=== PATIENT | male | born 1965 ===

== ENCOUNTER 2016-10-16 09:39 | Inpatient (IN) | payer MEDICARE, MEDICAID ==
[2016-10-15 15:10] VITALS: BMI 25.0
[2016-10-16] MEDS ORDERED: HEPARIN-NS 5,000 UNITS/500 ML 5,000 UNIT/500 ML BAG IV ONE (09:57)
[2016-10-16] MEDS ORDERED: Lidocaine 1% Inj (20ml) ONE (09:57)
[2016-10-16] MEDS ORDERED: ceFAZolin IV 1 gm in Dextrose 1 GM/50 ML BAG IVPB ONE (09:58)
[2016-10-16] MEDS ORDERED: Bupivacaine 0.5% Inj(30mL) ONE (09:59)
[2016-10-16] MEDS ORDERED: Iodixanol 320 MG/ML 200 ML BOTTLE IV ONE (09:59)
[2016-10-16] MEDS ORDERED: Iohexol 240 (50 ml) ONE (09:59)
[2016-10-16] MEDS ORDERED: Lactated Ringer's 1,000 ML IV ONE (10:41)
[2016-10-16] MEDS ORDERED: Sodium Chloride 0.9% 500 ML IV ONE (12:00)
[2016-10-16] MEDS ORDERED: Midazolam 2 MG/2 ML VIAL ONE (12:07)
[2016-10-16] MEDS ORDERED: Propofol 10 mg/ml Inj (20 ML) ONE ×2 (12:07→12:48)
[2016-10-16] MEDS ORDERED: Oxycodone/Acetaminophen 5/325 mg Tab PO PRN (13:33)
--- NOTE | 2016-10-16 13:36 | PCM.SURG1 ---
<Burton Belcher - Last Filed: 10/16/16 13:34> Surgeon's Initial Post Op Note - Surgeon's Notes Surgeon: Dr. Wu Cement Based Materials Pump Tender: Dr. Belcher PGY-2 Type of Anesthesia: IV Sedation Pre-Operative Diagnosis: L AVF occlusion Operative Findings: see op report Post-Operative Diagnosis: see op report Operation Performed: Attempted Right IJ dialysis catheter placement. Right Femoral vein dialysis catheter placement Specimen/Specimens Removed: none Estimated Blood Loss: EBL {In ML}: 15 Blood Products Given: N/A Drains Used: No Drains Post-Op Condition: Good Date of Surgery/Procedure: 10/16/16 Time of Surgery/Procedure: 13:36 <Arjun Wu - Last Filed: 10/16/16 13:54> Surgeon's Initial Post Op Note - Surgeon's Notes Pre-Operative Diagnosis: Need for emergent hemodialysis access Operative Findings: 1. Right femoral catheter with tip in the IVC which is patent on venogram. Catheter flushed easily and returned dark venous blood from both ports. 2. Apparent occlusion of the right jugular and/or right brachiocephalic vein Post-Operative Diagnosis: Need for emergent hemodialysis access Operation Performed: 1. Failed US-guided attempt to place right internal jugular vein dialysis catheter secondary to apparent right brachiocephalic vein occlusion. 2. US-guided placement of right femoral vein dual lumen dialysis catheter. 3. IVC venogram
--- NOTE | 2016-10-16 13:59 | RAD ---
HISTORY: r/o pneumothorax COMPARISON: Comparison is made to 12/11/2013 FINDINGS: LUNGS: There are small opacities at the lung bases may represent atelectasis. PLEURA: No significant pleural effusion identified, no pneumothorax apparent. CARDIOVASCULAR: Normal. OSSEOUS STRUCTURES: No significant abnormalities. VISUALIZED UPPER ABDOMEN: Normal. OTHER FINDINGS: Left-sided hemodialysis catheter seen in place. There is vascular stent at the right axillary region. IMPRESSION: Small opacities at the lung bases likely atelectasis.
[2016-10-16 14:52] LABS: BASO # 0.1 K/uL (0.0-0.2); BASO % 0.9 % (0.0-2.0); EOS # 0.2 K/uL (0.0-0.7); EOS % 3.1 % (0.0-4.0); HEMATOCRIT 36.3 % (35.0-51.0); LYMPH # 0.9 K/uL (1.0-4.3); MEAN CELL VOLUME 81.3 fL (80.0-94.0); MEAN CORPUSCULAR HEMOGLOBIN 26.1 pg (27.0-31.0); MEAN CORPUSCULAR HGB CONC 32.2 g/dL (33.0-37.0); MEAN PLATELET VOLUME 7.3 fL (7.2-11.7); MONO # 0.7 K/uL (0.0-0.8); MONO % 8.9 % (0.0-10.0); RED CELL DISTRIBUTION WIDTH 16.5 % (11.5-14.5); WHITE BLOOD COUNT 7.8 K/uL (4.8-10.8)
[2016-10-16 14:59] LABS: POTASSIUM 5.2 mmol/L (3.6-5.2)
[2016-10-16 15:03] LABS: CALCIUM 9.4 mg/dl (8.6-10.4)
[2016-10-16] MEDS ORDERED: Atropine-Diphenoxylate 0.025-2.5 mg Tab PO PRN (22:08)
[2016-10-16] MEDS: HYDROmorphone 1 mg/ml ISec IVP PRN (22:36)
[2016-10-17] MEDS: HYDROmorphone 1 mg/ml ISec IVP PRN ×5 (05:00→22:08)
[2016-10-17] MEDS: (Novolog) Insulin Aspart, Recombinant 100 u/ml 10 ml vial SC SCH ×4 (08:05→21:40)
[2016-10-17] MEDS ORDERED: Oxycodone/Acetaminophen 5/325 mg Tab PO PRN (08:24)
--- NOTE | 2016-10-17 08:42 | CP.PCM.CON ---
History of Present Illness - History of Present Illness History of Present Illness: REASONS FOR CONSULT : ESRD .. IN NEED FOR EMERGENT HD CLOTTED HD ACCESS PT WAS SEEN ON HD AT THE HD CENTER WITH CLOTTED HERO GRAFT ,, WAS SENT TUESDAY TO THE ACCESS CENTER AND THE GRAFT WAS DE CLOTTED .. BUT ON TUE THE GRAFT WAS FOUND AGAIN RE CLOTTED .. PT WAS ADVICED TO GO TO THE HOSPITAL.. PT WITH MULTIPLE MEDICAL PROBLEMS AND FREQUENT ADDMISSIONS CASE D/W VASCULR SURGERY .. S/P R FEMORAL CATH INSERTION PT RECIEVED HIS HD YESTERDAY SAT Past Patient History - Infectious Disease Hx of Infectious Diseases: None - Tetanus Immunizations Tetanus Immunization: Unknown - Past Medical History & Family History Past Medical History?: Yes - Past Social History Smoking Status: Never Smoked - CARDIAC Hx Cardiac Disorders: Yes Hx Atrial Fibrillation: Yes Hx Cardia Arrhythmia: Yes Hx Congestive Heart Failure: No Hx Hypercholesterolemia: Yes Hx Hypertension: Yes Hx Peripheral Edema: Yes - PULMONARY Hx Respiratory Disorders: Yes Hx Sleep Apnea: Yes - NEUROLOGICAL Hx Neurological Disorder: Yes Other/Comment: Hx Diabetic neuropathy - HEENT Hx HEENT Problems: Yes Hx Cataracts: Yes (Bilateral) Hx Epistaxis: Yes - RENAL Hx Chronic Kidney Disease: Yes (stage 5) Hx Dialysis: Yes Hx Kidney Stones: No Hx Neurogenic Bladder: No Hx Pyelonephritis: No Hx Renal (Kidney) Cancer: No Hx Renal Failure: Yes - ENDOCRINE/METABOLIC Hx Endocrine Disorders: Yes Hx Diabetes Mellitus Type 2: Yes Hx Hypothyroidism: No - HEMATOLOGICAL/ONCOLOGICAL Hx Blood Disorders: Yes Hx AIDS: No Hx Anemia: Yes Hx Human Immunodeficiency Virus (HIV): No - INTEGUMENTARY Hx Dermatological Problems: Yes Hx Cellulitis: Yes Other/Comment: Pt. had all toenails 10 toenails removed at the age of 14 due to pain - MUSCULOSKELETAL/RHEUMATOLOGICAL Hx Musculoskeletal Disorders: Yes Hx Arthritis: Yes Hx Falls: No Hx Fractures: No Hx Osteoporosis: Yes - GASTROINTESTINAL Hx Gastrointestinal Disorders: Yes Hx Gastritis: Yes - GENITOURINARY/GYNECOLOGICAL Hx Genitourinary Disorders: Yes Hx Prostate Problems: Yes Hx Urinary Tract Infection: Yes Other/Comment: Anuric due to kidney condition, confirmed by mother patient has no kidneys - PSYCHIATRIC Hx Psychophysiologic Disorder: Yes Hx Anxiety: Yes Hx Depression: Yes Hx Substance Use: No - SURGICAL HISTORY Hx Surgeries: Yes Hx Appendectomy: Yes Hx Vascular Surgery: Yes Hx Vascular Access Device: Yes Other/Comment: rt old avg. left old avg. rt femoral avg - ANESTHESIA Hx Anesthesia: Yes Hx Anesthesia Reactions: Yes (AWAKE DURING THE SURGERY) Hx Malignant Hyperthermia: No Meds Allergies/Adverse Reactions: Allergies Allergy/AdvReac Type Severity Reaction Status Date / Time ketorolac [From Toradol] Allergy RASH Verified 10/15/16 15:13 propoxyphene napsylate Allergy RASH Verified 10/15/16 15:13 [From Darvocet-N] vancomycin AdvReac RASH Verified 10/15/16 15:13 - Medications Medications: Current Medications Apixaban (Eliquis) 2.5 mg PO BID [facility] Last Admin: 10/16/16 22:43 Dose: 2.5 mg Clopidogrel Bisulfate (Plavix) 75 mg PO DAILY [facility] Diphenoxylate HCl/Atropine (Lomotil 0.025-2.5 Mg Tablet) 2 tab PO BID PRN PRN Reason: Diarrhea Home Med (Amino Ac/Protein Hydr/Whey Pro [Liquacel Liquid Protein Packet]) 30 ml PO DAILY [facility] Home Med (Esomeprazole Magnesium [Nexium]) 40 mg PO DAILY [facility] Home Med (Febuxostat [Uloric]) 40 mg PO DAILY [facility] Hydromorphone HCl (Dilaudid) 1 mg IVP Q4H PRN PRN Reason: Pain, moderate (4-7) Last Admin: 10/17/16 05:00 Dose: 1 mg Insulin Aspart (Novolog) 0 unit SC ACHS [facility] PRN Reason: Protocol Last Admin: 10/17/16 08:05 Dose: Not Given Lactic Acid (Lac-Hydrin 12% Lotion (225 G)) 0 gm TOP BID [facility] Megestrol Acetate (Megace) 200 mg PO BID [facility] Minoxidil (Minoxidil) 2.5 mg PO BID [facility] Last Admin: 10/16/16 23:15 Dose: 2.5 mg [id number] Ethyl Esters (Lovaza) 1 gm PO BID [facility] Oxycodone/Acetaminophen (Percocet 5/325 Mg Tab) 1 tab PO Q6H PRN PRN Reason: Pain, moderate (4-7) Stop: 10/20/16 08:25 Paroxetine HCl (Paxil) 10 mg PO DAILY [facility] Rosuvastatin Calcium (Crestor) 10 mg PO HS [facility] Sevelamer Carbonate (Renvela) 2,400 mg PO TID [facility] Tamsulosin HCl (Flomax) 0.4 mg PO DAILY [facility] Verapamil HCl (Calan Tab) 120 mg PO DAILY [facility] Last Admin: 10/16/16 22:47 Dose: 120 mg Vitamin B Complex/Vit C/Folic Acid (Nephro-Clayton) 1 tab PO DAILY [facility] Results - Vital Signs Recent Vital Signs: Last Vital Signs Temp 98.3 F 10/17/16 00:00 Pulse 89 10/17/16 00:00 Resp 20 10/17/16 00:00 BP 110/73 10/17/16 00:00 Pulse Ox 96 10/17/16 00:00 - Labs Result Diagrams: 10/16/16 14:49 10/16/16 14:49 Labs: Laboratory Results - last 24 hr 10/16/16 10/16/16 10/16/16 13:37 14:49 14:49 WBC 7.8 RBC 4.47 Hgb 11.7 L D Hct 36.3 MCV 81.3 MCH 26.1 L MCHC 32.2 L RDW 16.5 H Plt Count 326 MPV 7.3 Neut % (Auto) 75.1 H Lymph % (Auto) 12.0 L Craig % (Auto) 8.9 Eos % (Auto) 3.1 Baso % (Auto) 0.9 Neut # 5.8 Lymph # 0.9 L Craig # 0.7 Eos # 0.2 Baso # 0.1 Sodium 132 Potassium 5.2 Chloride 89 L Carbon Dioxide 21 L Anion Gap 27 H BUN 84 H Creatinine 18.2 H* D Est GFR ( Amer) 3 Est GFR (Non-Af Amer) 3 POC Glucose (mg/dL) 132 H Random Glucose 109 Calcium 9.4 10/16/16 10/17/16 21:21 08:04 WBC RBC Hgb Hct MCV MCH MCHC RDW Plt Count MPV Neut % (Auto) Lymph % (Auto) Craig % (Auto) Eos % (Auto) Baso % (Auto) Neut # Lymph # Craig # Eos # Baso # Sodium Potassium Chloride Carbon Dioxide Anion Gap BUN Creatinine Est GFR ( Amer) Est GFR (Non-Af Amer) POC Glucose (mg/dL) 255 H 116 H Random Glucose Calcium Assessment & Plan - Assessment and Plan (Free Text) Assessment: ESRD ON HD M W F .. RECIEVED HD SAT AFTER FEMORAL CATH WAS INSERTED S/P FEMORAL CATH FOR DECLOTTING ON TUE MULTIPLE CO MORBIDITIES P : C/O CURRENT CARE FOR DE CLOTTING BY VASCULAR SURGEON ON TUE WILL F/U CLOSELY - Date & Time Date: 10/16/16 Time: 17:00
[2016-10-17] MEDS: Multivitamin Vitamin B Complex (Nephro-Vite) Tab PO SCH (09:13)
[2016-10-17] MEDS: Omega-3-Acid Ethyl Esters 1 GM Cap PO SCH ×2 (09:15→18:06)
[2016-10-17] MEDS: Megestrol Acetate 40 mg/ml Cup PO SCH ×2 (09:15→18:10)
--- NOTE | 2016-10-17 09:32 | CP.PCM.PN ---
<Burton Belcher - Last Filed: 10/17/16 09:28> Subjective - Date & Time of Evaluation Date of Evaluation: 10/17/16 Time of Evaluation: 07:40 - Subjective Subjective: Pt S&E. No acute events over night. Tolerated dialysis yesterday. Right groin region looks good, no hematoma or active bleeding noted. Right neck region appears well. Patient reports mild tenderness in right neck area. Objective - Vital Signs/Intake and Output Vital Signs (last 24 hours): Temp Pulse Resp BP Pulse Ox 98.6 F 86 20 131/76 95 10/17/16 08:00 10/17/16 08:00 10/17/16 08:00 10/17/16 08:00 10/17/16 08:00 Intake and Output: 10/17/16 10/17/16 06:59 18:59 Intake Total 320 Balance 320 - Medications Medications: Current Medications Apixaban (Eliquis) 2.5 mg PO BID [facility] Last Admin: 10/17/16 09:13 Dose: 2.5 mg Clopidogrel Bisulfate (Plavix) 75 mg PO DAILY [facility] Last Admin: 10/17/16 09:15 Dose: 75 mg Diphenoxylate HCl/Atropine (Lomotil 0.025-2.5 Mg Tablet) 2 tab PO BID PRN PRN Reason: Diarrhea Home Med (Amino Ac/Protein Hydr/Whey Pro [Liquacel Liquid Protein Packet]) 30 ml PO DAILY [facility] Home Med (Esomeprazole Magnesium [Nexium]) 40 mg PO DAILY [facility] Home Med (Febuxostat [Uloric]) 40 mg PO DAILY [facility] Hydromorphone HCl (Dilaudid) 1 mg IVP Q4H PRN PRN Reason: Pain, moderate (4-7) Last Admin: 10/17/16 09:00 Dose: 1 mg Insulin Aspart (Novolog) 0 unit SC ACHS [facility] PRN Reason: Protocol Last Admin: 10/17/16 08:05 Dose: Not Given Lactic Acid (Lac-Hydrin 12% Lotion (225 G)) 0 gm TOP BID [facility] Megestrol Acetate (Megace) 200 mg PO BID [facility] Last Admin: 10/17/16 09:15 Dose: 200 mg Minoxidil (Minoxidil) 2.5 mg PO BID [facility] Last Admin: 08/13/17 09:14 Dose: 2.5 mg [id number] Ethyl Esters (Lovaza) 1 gm PO BID [facility] Last Admin: 10/17/16 09:15 Dose: 1 gm Oxycodone/Acetaminophen (Percocet 5/325 Mg Tab) 1 tab PO Q6H PRN PRN Reason: Pain, moderate (4-7) Stop: 10/20/16 08:25 Paroxetine HCl (Paxil) 10 mg PO DAILY [facility] Last Admin: 10/17/16 09:13 Dose: 10 mg Rosuvastatin Calcium (Crestor) 10 mg PO HS [facility] Sevelamer Carbonate (Renvela) 2,400 mg PO TID [facility] Last Admin: 10/17/16 09:14 Dose: 2,400 mg Tamsulosin HCl (Flomax) 0.4 mg PO DAILY [facility] Last Admin: 10/17/16 09:14 Dose: 0.4 mg Verapamil HCl (Calan Tab) 120 mg PO DAILY [facility] Last Admin: 10/16/16 22:47 Dose: 120 mg Vitamin B Complex/Vit C/Folic Acid (Nephro-Clayton) 1 tab PO DAILY [facility] Last Admin: 10/17/16 09:13 Dose: 1 tab - Labs Labs: 10/16/16 14:49 10/16/16 14:49 - Constitutional Appears: No Acute Distress - Head Exam Head Exam: NORMOCEPHALIC - Eye Exam Eye Exam: Normal appearance - ENT Exam ENT Exam: Mucous Membranes Moist - Cardiovascular Exam Cardiovascular Exam: +S1, +S2 - GI/Abdominal Exam GI & Abdominal Exam: Soft Additional comments: Right dialysis groing catheter in place - Neurological Exam Neurological Exam: Alert, Awake, Oriented x3 - Psychiatric Exam Psychiatric exam: Normal Mood - Skin Skin Exam: Dry, Intact, Warm Assessment and Plan - Assessment and Plan (Free Text) Assessment: 51M w/ clotted L AVF s/p right groin dialysis catheter insertion POD1 -Patient scheduled for L AVF declotting tomorrow -R dialysis catheter in place, surgical wound is c/d/i -Medical management per primary -Further recs per Dr. Jazmin Belcher PGY-2 <Arjun Wu - Last Filed: 10/17/16 10:20> Objective - Vital Signs/Intake and Output Vital Signs (last 24 hours): Temp Pulse Resp BP Pulse Ox 98.6 F 86 20 131/76 95 10/17/16 08:00 10/17/16 08:00 10/17/16 08:00 10/17/16 08:00 10/17/16 08:00 Intake and Output: 10/17/16 10/17/16 06:59 18:59 Intake Total 320 Balance 320 - Medications Medications: Current Medications Apixaban (Eliquis) 2.5 mg PO BID [facility] Last Admin: 10/17/16 09:13 Dose: 2.5 mg Clopidogrel Bisulfate (Plavix) 75 mg PO DAILY [facility] Last Admin: 10/17/16 09:15 Dose: 75 mg Diphenoxylate HCl/Atropine (Lomotil 0.025-2.5 Mg Tablet) 2 tab PO BID PRN PRN Reason: Diarrhea Home Med (Amino Ac/Protein Hydr/Whey Pro [Liquacel Liquid Protein Packet]) 30 ml PO DAILY [facility] Home Med (Esomeprazole Magnesium [Nexium]) 40 mg PO DAILY [facility] Home Med (Febuxostat [Uloric]) 40 mg PO DAILY [facility] Hydromorphone HCl (Dilaudid) 1 mg IVP Q4H PRN PRN Reason: Pain, moderate (4-7) Last Admin: 10/17/16 09:00 Dose: 1 mg Insulin Aspart (Novolog) 0 unit SC ACHS [facility] PRN Reason: Protocol Last Admin: 10/17/16 08:05 Dose: Not Given Lactic Acid (Lac-Hydrin 12% Lotion (225 G)) 0 gm TOP BID [facility] Megestrol Acetate (Megace) 200 mg PO BID [facility] Last Admin: 10/17/16 09:15 Dose: 200 mg Minoxidil (Minoxidil) 2.5 mg PO BID [facility] Last Admin: 10/17/16 09:14 Dose: 2.5 mg [id number] Ethyl Esters (Lovaza) 1 gm PO BID [facility] Last Admin: 10/17/16 09:15 Dose: 1 gm Oxycodone/Acetaminophen (Percocet 5/325 Mg Tab) 1 tab PO Q6H PRN PRN Reason: Pain, moderate (4-7) Stop: 10/20/16 08:25 Paroxetine HCl (Paxil) 10 mg PO DAILY [facility] Last Admin: 10/17/16 09:13 Dose: 10 mg Rosuvastatin Calcium (Crestor) 10 mg PO [facility] Sevelamer Carbonate (Renvela) 2,400 mg PO TID [facility] Last Admin: 10/17/16 09:14 Dose: 2,400 mg Tamsulosin HCl (Flomax) 0.4 mg PO DAILY [facility] Last Admin: 10/17/16 09:14 Dose: 0.4 mg Verapamil HCl (Calan Tab) 120 mg PO DAILY [facility] Last Admin: 10/16/16 22:47 Dose: 120 mg Vitamin B Complex/Vit C/Folic Acid (Nephro-Clayton) 1 tab PO DAILY [facility] Last Admin: 10/17/16 09:13 Dose: 1 tab - Labs Labs: 10/16/16 14:49 10/16/16 14:49 Assessment and Plan - Assessment and Plan (Free Text) Plan: Patient seen and examined. Agree with resident physician note. Patient feels much better after dialysis. He has no acute complaints except for some discomfort in the right groin and right side of the neck. There is no bleeding or hematomas. Right femoral dialysis catheter was used for dialysis yesterday and worked well. At this point my plan is to attempt percutaneous declotting of the left arm HeRo graft in the center medical and lab director tomorrow while continuing to use right femoral dialysis catheter for now. Success of failure of HeRo graft declotting will determine further treatment plan. NPO after midnight.
[2016-10-17] MEDS ORDERED: PROTEIN HYDR PO SCH (10:00)
[2016-10-17] MEDS ORDERED: WHEY PRO PO SCH (10:00)
[2016-10-17] MEDS ORDERED: AMINO AC PO SCH (10:00)
[2016-10-17] MEDS: Ammonium Lactate 12% Lotion (225 g) TOP SCH ×2 (13:09→18:11)
--- NOTE | 2016-10-18 01:16 | HP ---
HISTORY OF PRESENT ILLNESS: This is a 51-year-old male with history of multiple medical problems who was admitted for clotted AV shunt, left upper arm AV shunt. The patient was taken to emergently OR in [facility]. The patient was initially admitted to [facility] and was transferred to [facility] where vascular surgery tried to de-clot the shunt unsuccessfully. The patient complained of pain at the site of the shunt. No shortness of breath, no chest pain. OTHER REVIEW OF SYSTEMS: Negative. ALLERGIES: THE PATIENT HAS ALLERGY TO KETOROLAC, VANCOMYCIN, PROPOXYPHENE. SOCIAL HISTORY: No history of smoking, EtOH, or substance abuse. PAST MEDICAL HISTORY: Hypertension, end-stage renal disease on hemodialysis, type 2 diabetes mellitus, and paroxysmal atrial fibrillation, on anticoagulation. Denying prostate hypertrophy. FAMILY HISTORY: Noncontributory. PHYSICAL EXAMINATION: GENERAL: The patient is in bed, not in any cardiopulmonary distress. VITAL SIGNS: Blood pressure 131/76, temperature 98.6, respiratory rate 20, and pulse 86. HEENT: Pupils are equal and reactive to light. Normal-appearing mucosa of the conjunctivae, oropharyngeal, and nasal membrane mucosa. NECK: Supple. No JVD. No carotid bruits. No lymph nodes. No thyromegaly. CHEST AND LUNGS: Bilateral symmetrical expansion. Good air exchange. No rales. No rhonchi. CARDIOVASCULAR: PMI not localized. S1 and S2. No additional sounds. ABDOMEN: Normoactive bowel sounds. No tenderness. No organomegaly. No masses. EXTREMITIES: No cyanosis, no clubbing, no edema. Right metatarsal amputation. CENTRAL NERVOUS SYSTEM: Alert, awake, oriented x2. No neurological deficit could be appreciated. ASSESSMENT: 1. Clotted arteriovenous shunt. 2. End-stage renal disease, on hemodialysis. 3. Type 2 diabetes mellitus. 4. Hypertension. 5. Atrial fibrillation with controlled ventricular rate. PLAN: Follow recommendations of vascular surgery, pain management. Resume patient's home medications. Hemodialysis as per agricultural commodities grader order through the right femoral line. Addie Vale MD
--- NOTE | 2016-10-18 01:38 | OP ---
PROCEDURE DATE: 10/16/2016 PREOPERATIVE DIAGNOSIS: End-stage renal disease with need for emergent hemodialysis access. POSTOPERATIVE DIAGNOSIS: End-stage renal disease with need for emergent hemodialysis access. PROCEDURE: 1. Unsuccessful attempt to place right internal jugular vein hemodialysis catheter. 2. Placement of right femoral dual-lumen dialysis catheter under ultrasound and fluoroscopic guidance. 3. IVC venogram. SURGEON: Arjun Wu MD DEPARTMENTAL BUYER: Burton Belcher DO, PGY-II TYPE OF ANESTHESIA: Conscious sedation. INDICATION FOR SURGERY: The patient is a 51-year-old male with multiple severe comorbidities including end-stage renal disease on dialysis since the age of 12. The patient has had multiple central venous catheters as well as dialysis access placement procedures in the past. He had peritoneal dialysis which failed in the past secondary to peritonitis. Most recently, the patient has been dialyzed through left upper extremity HeRO dialysis graft placed by Dr. Grijalva several months ago. The left arm HeRO graft was working quite well until 5 days prior to the procedure when it was found to be clotted by dialysis nurses. Two days prior to this report, the patient underwent unsuccessful declotting of his left arm HeRO graft at the outside facility. That attempt was not successful and graft once again was found thrombosed by the next day. The patient was referred to emergency room and was admitted to [facility]. Vascular surgical evaluation was requested. On my exam, left upper extremity HeRo graft was thrombosed with no audible bruit. The patient has not been dialyzed for 5 days and was developing hyperkalemia and significant fluid overload. He required emergent hemodialysis access placement and initiation of dialysis. I had extensive discussion with the patient and his family regarding surgical plan, which included most importantly establishing hemodialysis access and dialyzing the patient and then another attempt at declotting of his left HeRo graft. I offered the patient central venous dialysis catheter placement as a temporizing measure. I described risks and benefits of the procedure, which included bleeding, hematoma, damage to the blood vessel or nerves, catheter or systemic infection, need for catheter removal and need for further procedures. With risks and benefits of the procedure clearly explained to the patient, he signed informed consent and chose to proceed with the operation. DESCRIPTION OF PROCEDURE: The patient was brought to the operating room and placed on the table. Conscious sedation anesthesia was applied. I used portable ultrasound to evaluate right jugular vein. Right jugular vein in the mid segment of the neck was patent with multiple venous collaterals visualized. 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 I decided to attempt cannulation of right internal jugular vein to see if I could advance the wire and place temporary dialysis catheter. 1 cc of 1% lidocaine was given subcutaneously and I punctured right internal jugular vein under US guided. Upon return of non- pulsatile dark blood, I advanced the wire under fluoroscopic guidance approximately 3 to 4 cm past the needle tip into the right internal jugular vein. I was not able to advance the wire any further as it apparently encountered chronic occlusion. While trying to get through the occlusion, the wire went into one of the venous collaterals, and while trying to remove it, I lost internal jugular access. I removed the wire without difficulty and applied digital pressure to right side of the neck for several minutes. The field was hemostatic and I used ultrasound guidance to access right internal jugular vein again. I placed a micropuncture kit sheath into the vein over the wire and attempted crossing the occlusion with glide wire. However, I encountered same problem as I could not advance the wire past 4 cm celine going proximally. There were right subclavian vein stents apparent on fluoroscopy, and evidently patient had occlusion of the right brachiocephalic vein at the junction of right internal jugular and subclavian veins. At this point, I decided to abandon the attempt to place right internal jugular dialysis catheter and turned by attention to the right groin. I used portable ultrasound to visualize right femoral vein which was patent and free of thrombus. Right groin was prepped and draped in sterile fashion, and under ultrasound guidance, I cannulated right common femoral vein without difficulty. Upon return of dark non-pulsatile blood, I advanced the wire through the needle into the right common femoral vein and IVC under fluoroscopic guidance. The wire was clearly visualized to the right of the spinal column. I used series of subcutaneous dilators under fluoroscopic guidance to dilate the tract for dialysis catheter placement under fluoroscopy. Next, I used peel-off sheath and advanced this over the wire under fluoroscopic guidance. A 14-Panamanian 28 cm dual-lumen dialysis catheter was placed through the peel-off sheath without difficulty and peel-off sheath was removed. I visualized tip of the catheter in the IVC. There was return of dark venous blood on both ports and both ports were flushed with heparinized saline without any resistance. Next, I used 20 mL of contrast by hand injection to perform IVC venogram. IVC was found to be patent with no evidence of stenosis or thrombosis. At that point, right femoral dialysis catheter was secured to skin and sterile dressing was applied. The patient was transferred to postanesthesia unit in satisfactory condition. There was no evidence of bleeding or hematoma around venipuncture site. Chest x-ray was obtained in PACU and showed no evidence of pneumo- or hemothorax. The patient's irish moss operator Dr. Grier was contacted and arrangement for emergent hemodialysis were made by him. Arjun Wu MD MTDD
[2016-10-18] MEDS: HYDROmorphone 1 mg/ml ISec IVP PRN ×2 (03:33→08:16)
[2016-10-18] MEDS: (Novolog) Insulin Aspart, Recombinant 100 u/ml 10 ml vial SC SCH ×4 (08:32→22:10)
--- NOTE | 2016-10-18 09:43 | CP.PCM.PN ---
<Chinedu Bean - Last Filed: 10/18/16 09:41> Subjective - Date & Time of Evaluation Date of Evaluation: 10/18/16 Time of Evaluation: 08:00 - Subjective Subjective: Vascular Surgery- Dr. Wu Pt S&E at bedside this AM. No acute events overnight. Pt Scheduled to go for dialysis today, followed by angio tomorrow. Right femoral Chirag in place. No erythema, induration, or active bleeding. Denies F/C CP/SOB N/V/D Objective - Vital Signs/Intake and Output Vital Signs (last 24 hours): Temp Pulse Resp BP Pulse Ox 98.7 F 86 20 151/88 H 97 10/18/16 08:00 10/18/16 08:00 10/18/16 08:00 10/18/16 08:00 10/18/16 08:00 Intake and Output: 10/18/16 10/18/16 06:59 18:59 Intake Total 400 0 Balance 400 0 - Medications Medications: Current Medications Apixaban (Eliquis) 2.5 mg PO BID [facility] Last Admin: 10/17/16 21:39 Dose: 2.5 mg Clopidogrel Bisulfate (Plavix) 75 mg PO DAILY [facility] Last Admin: 10/17/16 09:15 Dose: 75 mg Diphenoxylate HCl/Atropine (Lomotil 0.025-2.5 Mg Tablet) 2 tab PO BID PRN PRN Reason: Diarrhea Home Med (Amino Ac/Protein Hydr/Whey Pro [Liquacel Liquid Protein Packet]) 30 ml PO DAILY [facility] Home Med (Esomeprazole Magnesium [Nexium]) 40 mg PO DAILY [facility] Home Med (Febuxostat [Uloric]) 40 mg PO DAILY [facility] Hydromorphone HCl (Dilaudid) 1 mg IVP Q4H PRN PRN Reason: Pain, severe (8-10) Last Admin: 10/18/16 08:16 Dose: 1 mg Insulin Aspart (Novolog) 0 unit SC ACHS [facility] PRN Reason: Protocol Last Admin: 10/18/16 08:32 Dose: Not Given Lactic Acid (Lac-Hydrin 12% Lotion (225 G)) 0 gm TOP BID [facility] Last Admin: 10/17/16 18:11 Dose: 1 applic Megestrol Acetate (Megace) 200 mg PO BID [facility] Last Admin: 10/17/16 18:10 Dose: Not Given Minoxidil (Minoxidil) 2.5 mg PO BID [facility] Last Admin: 10/17/16 18:06 Dose: 2.5 mg Wthis-8-Hjag Ethyl Esters (Lovaza) 1 gm PO BID [facility] Last Admin: 10/17/16 18:06 Dose: 1 gm Oxycodone/Acetaminophen (Percocet 5/325 Mg Tab) 1 tab PO Q6H PRN PRN Reason: Pain, moderate (4-7) Stop: 10/20/16 08:25 Paroxetine HCl (Paxil) 10 mg PO DAILY [facility] Last Admin: 10/17/16 09:13 Dose: 10 mg Rosuvastatin Calcium (Crestor) 10 mg PO HS [facility] Last Admin: 10/17/16 21:38 Dose: 10 mg Sevelamer Carbonate (Renvela) 2,400 mg PO TID [facility] Last Admin: 10/17/16 18:06 Dose: 2,400 mg Tamsulosin HCl (Flomax) 0.4 mg PO DAILY [facility] Last Admin: 10/17/16 09:14 Dose: 0.4 mg Verapamil HCl (Calan Tab) 120 mg PO DAILY [facility] Last Admin: 10/17/16 13:09 Dose: 120 mg Vitamin B Complex/Vit C/Folic Acid (Nephro-Clayton) 1 tab PO DAILY [facility] Last Admin: 10/17/16 09:13 Dose: 1 tab - Labs Labs: 10/16/16 14:49 10/16/16 14:49 - Constitutional Appears: No Acute Distress - Head Exam Head Exam: ATRAUMATIC - Respiratory Exam Respiratory Exam: NORMAL BREATHING PATTERN. absent: Accessory Muscle Use, Rhonchi, Wheezes - Cardiovascular Exam Cardiovascular Exam: +S1, +S2 - GI/Abdominal Exam GI & Abdominal Exam: Soft, Normal Bowel Sounds. absent: Distended, Tenderness - Extremities Exam Additional comments: Right Femoral temporary dialysis catheter in place. - Neurological Exam Neurological Exam: Awake, Oriented x3 - Psychiatric Exam Psychiatric exam: Normal Affect - Skin Skin Exam: Normal Color Assessment and Plan - Assessment and Plan (Free Text) Assessment: 51M w/ clotted L AVF s/p right femoral temporary dialysis catheter insertion POD2 Plan: -Patient scheduled for L AVF declotting tomorrow * Angiography poss angioplasty- declotting of L AVF -R dialysis catheter in place, surgical wound is c/d/i - Dialysis today -Medical management per primary -Further recs per Dr. Jazmin Bean PGY1 <Arjun Wu - Last Filed: 10/18/16 15:39> Objective - Vital Signs/Intake and Output Vital Signs (last 24 hours): Temp Pulse Resp BP Pulse Ox 97.7 F 95 H 19 125/77 100 10/18/16 13:30 10/18/16 13:30 10/18/16 13:30 10/18/16 13:30 10/18/16 13:30 Intake and Output: 10/18/16 10/18/16 06:59 18:59 Intake Total 400 0 Balance 400 0 - Medications Medications: Current Medications Apixaban (Eliquis) 2.5 mg PO BID [facility] Last Admin: 10/18/16 11:01 Dose: Not Given Clopidogrel Bisulfate (Plavix) 75 mg PO DAILY [facility] Last Admin: 10/18/16 11:03 Dose: Not Given Diphenoxylate HCl/Atropine (Lomotil 0.025-2.5 Mg Tablet) 2 tab PO BID PRN PRN Reason: Diarrhea Famotidine (Pepcid) 20 mg PO DAILY [facility] Home Med (Febuxostat [Uloric]) 40 mg PO DAILY [facility] Hydromorphone HCl (Dilaudid) 1.5 mg IVP Q4H PRN PRN Reason: Pain, severe (8-10) Insulin Aspart (Novolog) 0 unit SC ACHS [facility] PRN Reason: Protocol Last Admin: 10/18/16 11:02 Dose: Not Given Lactic Acid (Lac-Hydrin 12% Lotion (225 G)) 0 gm TOP BID [facility] Last Admin: 10/18/16 11:01 Dose: Not Given Megestrol Acetate (Megace) 200 mg PO BID [facility] Last Admin: 10/18/16 11:01 Dose: Not Given Minoxidil (Minoxidil) 2.5 mg PO BID [facility] Last Admin: 10/18/16 11:02 Dose: Not Given Oouzs-9-Khal Ethyl Esters (Lovaza) 1 gm PO BID [facility] Last Admin: 10/18/16 11:01 Dose: Not Given Oxycodone/Acetaminophen (Percocet 5/325 Mg Tab) 1 tab PO Q6H PRN PRN Reason: Pain, moderate (4-7) Stop: 10/20/16 08:25 Paroxetine HCl (Paxil) 10 mg PO DAILY [facility] Last Admin: 10/18/16 11:03 Dose: Not Given Rosuvastatin Calcium (Crestor) 10 mg PO HS [facility] Last Admin: 10/17/16 21:38 Dose: 10 mg Sevelamer Carbonate (Renvela) 2,400 mg PO TID [facility] Last Admin: 10/18/16 14:32 Dose: Not Given Tamsulosin HCl (Flomax) 0.4 mg PO DAILY [facility] Last Admin: 10/18/16 11:01 Dose: Not Given Verapamil HCl (Calan Tab) 120 mg PO DAILY [facility] Last Admin: 10/18/16 11:01 Dose: Not Given Vitamin B Complex/Vit C/Folic Acid (Nephro-Clayton) 1 tab PO DAILY [facility] Last Admin: 10/18/16 11:02 Dose: Not Given - Labs Labs: 10/18/16 11:06 10/18/16 11:06 PT 12.2 SECONDS (9.7-12.2) 10/18/16 11:06 INR 1.1 10/18/16 11:06 APTT 36 SECONDS (21-34) H 10/18/16 11:06 Assessment and Plan - Assessment and Plan (Free Text) Plan: Patient seen and examined. No acute issues at present. Patient remains clinically stable. Right femoral dialysis catheter functioned well at dialysis today. Patient is scheduled for declotting his left upper extremity HeRo catheter tomorrow. Continue supportive management.
[2016-10-18] MEDS: Omega-3-Acid Ethyl Esters 1 GM Cap PO SCH ×2 (11:01→17:49)
[2016-10-18] MEDS: Ammonium Lactate 12% Lotion (225 g) TOP SCH ×2 (11:01→17:57)
[2016-10-18] MEDS: Megestrol Acetate 40 mg/ml Cup PO SCH ×2 (11:01→17:49)
[2016-10-18] MEDS: Multivitamin Vitamin B Complex (Nephro-Vite) Tab PO SCH (11:02)
[2016-10-18 11:22] LABS: INR 1.1
[2016-10-18 11:23] LABS: POTASSIUM 3.2 mmol/L (3.6-5.2)
[2016-10-18 11:25] LABS: BILIRUBIN,TOTAL 0.8 mg/dL (0.2-1.3); TOTAL PROTEIN 7.3 g/dL (6.3-8.3)
[2016-10-18 11:26] LABS: CALCIUM 9.3 mg/dl (8.6-10.4)
[2016-10-18 11:29] LABS: BASO # 0.1 K/uL (0.0-0.2); BASO % 0.8 % (0.0-2.0); EOS # 0.3 K/uL (0.0-0.7); EOS % 3.7 % (0.0-4.0); HEMATOCRIT 37.7 % (35.0-51.0); LYMPH % 13.4 % (20.0-40.0); MEAN CELL VOLUME 80.8 fL (80.0-94.0); MEAN CORPUSCULAR HEMOGLOBIN 26.4 pg (27.0-31.0); MEAN CORPUSCULAR HGB CONC 32.7 g/dL (33.0-37.0); MEAN PLATELET VOLUME 7.3 fL (7.2-11.7); MONO % 12.9 % (0.0-10.0); RED CELL DISTRIBUTION WIDTH 16.8 % (11.5-14.5); WHITE BLOOD COUNT 7.6 K/uL (4.8-10.8)
--- NOTE | 2016-10-18 18:04 | CP.PCM.PN ---
Subjective - Date & Time of Evaluation Date of Evaluation: 10/18/16 Time of Evaluation: 15:00 - Subjective Subjective: SEEN ON RENAL F/U .. C/O LOCAL PAIN ON R LEG AND L SHOULDER RECIEVED HD EARLIAR TODAY VIA R FEMORAL CATH FOR DECLOTTING OF L U E AVG IN AM C/O CURRENT CARE WILL START ON ASA 81 NG POQD AFTER THE DECLOTTING Objective - Vital Signs/Intake and Output Vital Signs (last 24 hours): Temp Pulse Resp BP Pulse Ox 99 F 101 H 20 136/87 96 10/18/16 16:30 10/18/16 16:30 10/18/16 16:30 10/18/16 16:30 10/18/16 16:30 Intake and Output: 10/18/16 10/18/16 06:59 18:59 Intake Total 400 480 Balance 400 480 - Medications Medications: Current Medications Apixaban (Eliquis) 2.5 mg PO BID [facility] Last Admin: 10/18/16 17:52 Dose: 2.5 mg Clopidogrel Bisulfate (Plavix) 75 mg PO DAILY [facility] Last Admin: 10/18/16 11:03 Dose: Not Given Diphenoxylate HCl/Atropine (Lomotil 0.025-2.5 Mg Tablet) 2 tab PO BID PRN PRN Reason: Diarrhea Famotidine (Pepcid) 20 mg PO DAILY [facility] Home Med (Febuxostat [Uloric]) 40 mg PO DAILY [facility] Hydromorphone HCl (Dilaudid) 1.5 mg IVP Q4H PRN PRN Reason: Pain, severe (8-10) Last Admin: 10/18/16 16:00 Dose: 1.5 mg Insulin Aspart (Novolog) 0 unit SC ACHS [facility] PRN Reason: Protocol Last Admin: 10/18/16 17:10 Dose: Not Given Lactic Acid (Lac-Hydrin 12% Lotion (225 G)) 0 gm TOP BID [facility] Last Admin: 10/18/16 17:57 Dose: 1 applic Minoxidil (Minoxidil) 2.5 mg PO BID [facility] Last Admin: 10/18/16 17:52 Dose: 2.5 mg [id number] Ethyl Esters (Lovaza) 1 gm PO BID [facility] Last Admin: 10/18/16 17:49 Dose: 1 gm Oxycodone/Acetaminophen (Percocet 5/325 Mg Tab) 1 tab PO Q6H PRN PRN Reason: Pain, moderate (4-7) Stop: 10/20/16 08:25 Paroxetine HCl (Paxil) 10 mg PO DAILY [facility] Last Admin: 10/18/16 11:03 Dose: Not Given Rosuvastatin Calcium (Crestor) 10 mg PO HS [facility] Last Admin: 10/17/16 21:38 Dose: 10 mg Sevelamer Carbonate (Renvela) 2,400 mg PO TID [facility] Last Admin: 10/18/16 17:50 Dose: 2,400 mg Tamsulosin HCl (Flomax) 0.4 mg PO DAILY [facility] Last Admin: 10/18/16 11:01 Dose: Not Given Verapamil HCl (Calan Tab) 120 mg PO DAILY [facility] Last Admin: 10/18/16 11:01 Dose: Not Given Vitamin B Complex/Vit C/Folic Acid (Nephro-Clayton) 1 tab PO DAILY [facility] Last Admin: 10/18/16 11:02 Dose: Not Given - Labs Labs: 10/18/16 11:06 10/18/16 11:06 PT 12.2 SECONDS (9.7-12.2) 10/18/16 11:06 INR 1.1 10/18/16 11:06 APTT 36 SECONDS (21-34) H 10/18/16 11:06
--- NOTE | 2016-10-18 19:48 | PN ---
DATE: 10/18/2016 SUBJECTIVE: The patient is seen today on 10/18/2016. He is being dialyzed from the femoral catheter. PHYSICAL EXAMINATION VITAL SIGNS: Blood pressure 136/87, temperature 99, respiratory rate 20, and pulse 100. HEENT: Pupils equal and reactive to light. Normal appearing mucosa, conjunctivae, oropharyngeal, and nasal membrane mucosa. NECK: Supple. No JVD. No carotid bruits. No lymph nodes. No thyromegaly. CHEST AND LUNGS: Bilateral symmetrical expansion. Good air exchange. No rales. No rhonchi. CARDIOVASCULAR: PMI not localized. S1 and S2. No additional sounds. ABDOMEN: Normoactive bowel sounds. No tenderness. No organomegaly. No masses. EXTREMITIES: No cyanosis, no clubbing, no edema. Right metatarsal amputation. CENTRAL NERVOUS SYSTEM: Alert, awake, oriented x3. No neurological deficit could be appreciated. ASSESSMENT: 1. Clotted arteriovenous shunt of the left upper arm. 2. End-stage renal disease, on hemodialysis. 3. Hypertension. PLAN: The patient is for shunt repair and currently we will continue hemodialysis through a right femoral catheter. Addie Vale MD
[2016-10-19] MEDS: (Novolog) Insulin Aspart, Recombinant 100 u/ml 10 ml vial SC SCH ×4 (07:50→22:32)
[2016-10-19] MEDS: Ammonium Lactate 12% Lotion (225 g) TOP SCH ×2 (09:59→18:28)
[2016-10-19] MEDS: Omega-3-Acid Ethyl Esters 1 GM Cap PO SCH ×2 (09:59→18:28)
[2016-10-19] MEDS: Multivitamin Vitamin B Complex (Nephro-Vite) Tab PO SCH (09:59)
[2016-10-19] MEDS ORDERED: Propofol 10 mg/ml Inj (20 ML) ONE ×2 (10:02→12:46)
[2016-10-19] MEDS ORDERED: Midazolam 2 MG/2 ML VIAL ONE ×2 (10:03→10:45)
[2016-10-19] MEDS ORDERED: Iodixanol 320 MG/ML 100 ML BOTTLE IV ONE ×2 (10:26→13:30)
[2016-10-19] MEDS ORDERED: ceFAZolin 1 gm FROZEN Premix 1 GM/50 ML ML IVPB ONE (10:30)
[2016-10-19] MEDS ORDERED: ALTEPLASE IV ONE (11:00)
[2016-10-19] MEDS ORDERED: SODIUM CHLORIDE 0.9% IV ONE (11:00)
--- NOTE | 2016-10-19 13:56 | PCM.SURG1 ---
Surgeon's Initial Post Op Note - Surgeon's Notes Surgeon: Arjun Wu MD Director Digital Communications: None Type of Anesthesia: IV Sedation, Moderate Sedation{RN}, Local Pre-Operative Diagnosis: Thrombosis of the left upper arm dialysis HeRo graft Operative Findings: Occluded left HeRo dialysis catheter with significant amount of clot in the proximal graft right off anastomosis. Patent HeRo graft post-procedure with brisk contrast emptying. No apparent residual thrombus or stenosis in the entire body of the graft. Patent brachial anastomosis with no obvious shemodynamically significant stenosis. Post-Operative Diagnosis: Same Operation Performed: 1. Left upper arm HeRo graft declotting using Angiojet thrombectomy device and Gypsy balloon embolectomy vatheter. 2. Post- operative fistulogram Specimen/Specimens Removed: None Estimated Blood Loss: EBL {In ML}: 50 Blood Products Given: N/A Drains Used: No Drains Post-Op Condition: Good Date of Surgery/Procedure: 10/19/16 Time of Surgery/Procedure: 13:56
[2016-10-19] MEDS ORDERED: HYDROmorphone 0.5 mg/0.5 ml ISec IVP PRN (14:03)
[2016-10-19] MEDS ORDERED: HYDROmorphone 1 mg/ml ISec ONE (14:37)
--- NOTE | 2016-10-19 22:22 | CP.PCM.PN ---
Subjective - Date & Time of Evaluation Date of Evaluation: 10/19/16 Time of Evaluation: 13:00 - Subjective Subjective: SEEN ON RENAL F/U S/P DECLOTTING OF L ARM HERO GRAFT ON HD M W F Objective - Vital Signs/Intake and Output Vital Signs (last 24 hours): Temp Pulse Resp BP Pulse Ox 98.3 F 87 20 145/92 H 96 10/19/16 15:00 10/19/16 15:00 10/19/16 15:00 10/19/16 15:00 10/19/16 15:00 Intake and Output: 10/19/16 10/20/16 18:59 06:59 Intake Total 0 Balance 0 - Medications Medications: Current Medications Apixaban (Eliquis) 2.5 mg PO BID [facility] Last Admin: 10/19/16 19:15 Dose: 2.5 mg Aspirin (Ecotrin) 81 mg PO DAILY [facility] Clopidogrel Bisulfate (Plavix) 75 mg PO DAILY [facility] Last Admin: 10/19/16 09:59 Dose: Not Given Diphenoxylate HCl/Atropine (Lomotil 0.025-2.5 Mg Tablet) 2 tab PO BID PRN PRN Reason: Diarrhea Famotidine (Pepcid) 20 mg PO DAILY [facility] Last Admin: 10/19/16 19:12 Dose: 20 mg Home Med (Febuxostat [Uloric]) 40 mg PO DAILY [facility] Last Admin: 10/19/16 09:59 Dose: Not Given Hydromorphone HCl (Dilaudid) 1.5 mg IVP Q4H PRN PRN Reason: Pain, severe (8-10) Last Admin: 10/19/16 19:07 Dose: 1.5 mg Insulin Aspart (Novolog) 0 unit SC ACHS [facility] PRN Reason: Protocol Last Admin: 10/19/16 16:43 Dose: Not Given Lactic Acid (Lac-Hydrin 12% Lotion (225 G)) 0 gm TOP BID [facility] Last Admin: 10/19/16 18:28 Dose: Not Given Minoxidil (Minoxidil) 2.5 mg PO BID [facility] Last Admin: 10/19/16 19:15 Dose: 2.5 mg Wkyxr-7-Lhff Ethyl Esters (Lovaza) 1 gm PO BID [facility] Last Admin: 10/19/16 18:28 Dose: Not Given Oxycodone/Acetaminophen (Percocet 5/325 Mg Tab) 1 tab PO Q6H PRN PRN Reason: Pain, moderate (4-7) Stop: 10/20/16 08:25 Paroxetine HCl (Paxil) 10 mg PO DAILY [facility] Last Admin: 10/19/16 19:14 Dose: 10 mg Rosuvastatin Calcium (Crestor) 10 mg PO HS [facility] Last Admin: 10/18/16 21:38 Dose: 10 mg Sevelamer Carbonate (Renvela) 2,400 mg PO TID [facility] Last Admin: 10/19/16 18:28 Dose: Not Given Tamsulosin HCl (Flomax) 0.4 mg PO DAILY [facility] Last Admin: 10/19/16 09:59 Dose: Not Given Verapamil HCl (Calan Tab) 120 mg PO DAILY [facility] Last Admin: 10/19/16 19:14 Dose: 120 mg Vitamin B Complex/Vit C/Folic Acid (Nephro-Clayton) 1 tab PO DAILY [facility] Last Admin: 10/19/16 09:59 Dose: Not Given - Labs Labs: 10/18/16 11:06 10/18/16 11:06 PT 12.2 SECONDS (9.7-12.2) 10/18/16 11:06 INR 1.1 10/18/16 11:06 APTT 36 SECONDS (21-34) H 10/18/16 11:06 Assessment and Plan - Assessment and Plan (Free Text) Assessment: ESRD ON HD M W F ANEMIA OF CKD . H/H STABLE S/P DECLOTTING C/O CURRENT CARE
--- NOTE | 2016-10-20 04:10 | PN ---
DATE: SUBJECTIVE: The patient has stable , pain lt upper arm on pain medications. . PHYSICAL EXAMINATION VITAL SIGNS: Blood pressure 130/92, temperature 98.8, respiratory rate 20, and pulse of 104. HEENT: Slightly pale mucosa of the conjunctivae. NECK: Supple. No JVD. No carotid bruits. No lymph nodes. No thyromegaly. CHEST AND LUNGS: Bilaterally symmetrical expansion. Good air exchange. CARDIOVASCULAR: PMI not localized. S1 and S2, irregularly irregular. ABDOMEN: Normoactive bowel sounds. No tenderness. No organomegaly. No masses. EXTREMITIES: No cyanosis, no clubbing. CENTRAL NERVOUS SYSTEM: Alert, awake, oriented x2. No neurological deficit could be appreciated.. ASSESSMENT: 1. Malfunctioning left arm arteriovenous shunt. 2. End-stage renal disease, on hemodialysis. 3. Hypertension. PLAN: Continue current management including pain medication and follow vascular surgery recommendation. Mc MD Kavin MTDD
--- NOTE | 2016-10-20 04:12 | OP ---
PROCEDURE DATE: 10/19/2016 SURGEON: Arjun Wu MD BUSINESS CONTINUITY MANAGER: None. PREOPERATIVE DIAGNOSIS: Thrombosed left upper extremity HeRO dialysis graft. POSTOPERATIVE DIAGNOSIS: Thrombosed left upper extremity HeRO dialysis graft. PROCEDURE: 1. Declotting of left upper arm HeRO dialysis graft using AngioJet thrombolytic system and Gypsy balloon thrombectomy. 2. Post procedure fistulogram. TYPE OF ANESTHESIA: IV sedation. INDICATION FOR SURGERY: The patient is a 51-year-old man with multiple severe comorbidities including end-stage renal disease on hemodialysis. The patient was started on dialysis at the 12 years of age and has been dialyzed for many years. He has had multiple dialysis access procedures in the past and exhausted numerous access sites. His renal transplant, peritoneal dialysis and several AV fistulas/grafts in bilateral upper extremities eventually failed. Most recently, the patient has been dialyzed using left upper extremity HeRO dialysis graft placed several months ago by Dr. Grijalva. Six days ago the patient was found to have thrombosis of his HeRO graft. Five days prior to this report, he underwent unsuccessful attempt at declotting left arm HeRO graft at the outside facility. He was admitted to the emergency room at [facility] 4 days prior for evaluation and resolving dialysis access situation. At that time, he had not been dialyzed for at least 5 days. I evaluated the patient shortly after his admission. Clinically, his left upper extremity dialysis graft was thrombosed with no audible bruit or Doppler signal. He showed signs for significant fluid overload and was developing hyperkalemia. Three days ago, I took the patient to the operating room and placed right femoral dialysis catheter which has been used for dialysis ever since. The patient improved clinically with resolution of his hyperkalemia and fluid overload. Given his precarious dialysis access situation, I recommended the patient another attempt at declotting left upper extremity HeRO graft at [facility] catheterization lab. I described the patient details as well as risks and benefits of the procedure. As far as the risks are concerned, I specifically mentioned unsuccessful attempts at declotting HeRO graft especially since another thrombectomy attempt failed in the recent past. I mentioned risk of infection, bleeding, hematoma and need for graft removal. I emphasized the need for further procedures to maintain this graft or to secure new hemodialysis access. I mentioned risk of damage to blood vessels or nerves. I emphasized the risk of embolization and limb ischemia. With the risks and benefits of the procedure described to the patient and his family, he decided to proceed with proposed procedure and signed informed consent. DESCRIPTION OF PROCEDURE: The patient was evaluated by me immediately prior the procedure. Left upper extremity was marked with my initial as the correct surgical site. The patient was brought to the catheterization lab and placed on a table. Left upper extremity was placed on a side table and prepped and draped in a sterile fashion. Patient was given 1 gm of Ancef intravenously. Pre-procedural time-out was completed with confirmation of the patient's identity as well as correct surgical site and proper procedure. I used Micropuncture Kit and attempted cannulating HeRO graft approximately 4 cm proximal to the anastomosis. Since there was no blood flow in the graft it was difficult and I used portable ultrasound at which point graft was cannulated without difficulty in the antegrade direction going centrally toward the heart. Micropuncture sheath was placed and Glidewire was advanced through the arterial portion of the graft through the connector into the venous outflow portion of HeRO graft. Sheath was exchanged for short 7 -Irish over the wire. I injected the contrast through the sheath and the contrast filled the graft, but was not emptying as excepted with graft thrombosis. At this point, I decided to proceed with graft thrombectomy using AngioJet thrombectomy system. AngioJet Solent Omni 120 cm 6-Irish catheter was used over the wire and advanced to the level of the tip of the graft in the right atrium. Next, Pulse spray was used to infuse thrombus within the graft with 20 mg of tPA mixed in 250 mL of saline. After tPA administration, I waited for 20 minutes and then proceeded with AngioJet thrombectomy. Once the thrombectomy was completed, I injected the graft with contrast and it showed patent graft with contrast emptying into the right atrium. Next, I digitally occluded mid portion of the graft and injected contrast forcing it retrograde. I was able to visualize proximal portion of the graft as well as arterial anastomosis and segment of the left brachial artery above and below anastomosis. Anastomosis appeared widely patent with no hemodynamically significant stenosis. Left brachial artery above and below the graft also appeared to be patent with no high grade stenosis. However, there appeared to be filling defect in the most proximal portion of the graft extending from the anastomosis into the graft. I used portable ultrasound to gain retrograde access to the graft using Micropuncture Kit. 7-Irish sheath was placed over wire going retrograde toward anastomosis. I used Glidewire to pass through the graft, through anastomosis into the left brachial artery and into the left radial artery. A 5.5 Irish x 80 cm Gypsy Balloon was used to perform thrombectomy through the anastomosis and proximal portion of the graft. While performing thrombectomy, I applied suction to the sidearm of the retrograde sheath and was able to remove dark semi-liquid clot. After 2 more passes of Gypsy balloon, I once again performed injection through the retrograde sheath and both proximal portion of the graft and anastomosis were patent with no evidence of residual thrombus. Next, I removed retrograde sheath and closed cannulation site with 4-0 Prolene stitch, which was hemostatic. I decided to perform another thrombectomy of the remaining portion of the graft beginning from its tip in the right atrium all the way to the antegrade sheath. Gypsy catheter was advanced over the wire and entire length of the HeRo graft was thrombectomized. Next, I performed hand injection through the antegrade sheath and the graft was patent with no residual thrombus or stenosis. The contrast emptying through the graft was brisk. I removed anterograde sheath and placed 4-0 Prolene to close cannulation site. The field was hemostatic. There was mild hematoma at the anterograde sheath insertion site. I used stethoscope and clearly appreciated bruit in the graft. At this point, procedure was terminated. Dressing was applied to the left upper extremity. Left hand was warm with no sign of ischemia or clinical signs of embolization. The patient was transferred to post-procedural unit in the satisfactory condition. Half an hour since procedure time, I re-examined the patient and once again appreciated audible bruit in the left HeRo graft with stethoscope. Arjun Wu MD JAZZMINE
[2016-10-20] MEDS: (Novolog) Insulin Aspart, Recombinant 100 u/ml 10 ml vial SC SCH ×4 (07:56→23:10)
--- NOTE | 2016-10-20 11:22 | CP.PCM.PN ---
<Martha Travis - Last Filed: 10/20/16 11:28> Subjective - Date & Time of Evaluation Date of Evaluation: 10/20/16 Time of Evaluation: 07:15 - Subjective Subjective: General Surgery Note Patient was seen and examined at bedside in no acute distress. Patient was resting comfortably in bed. Patient denies fever, chills, nausea, vomiting, L arm pain/numbness/tingling, chest pain, palpitation and SOB. Objective - Vital Signs/Intake and Output Vital Signs (last 24 hours): Temp Pulse Resp BP Pulse Ox 98 F 81 20 116/65 99 10/20/16 09:30 10/20/16 09:30 10/20/16 09:30 10/20/16 10:30 10/20/16 09:30 - Medications Medications: Current Medications Apixaban (Eliquis) 2.5 mg PO BID [facility] Last Admin: 10/19/16 19:15 Dose: 2.5 mg Aspirin (Ecotrin) 81 mg PO DAILY [facility] Clopidogrel Bisulfate (Plavix) 75 mg PO DAILY [facility] Last Admin: 10/19/16 09:59 Dose: Not Given Diphenoxylate HCl/Atropine (Lomotil 0.025-2.5 Mg Tablet) 2 tab PO BID PRN PRN Reason: Diarrhea Last Admin: 10/20/16 00:00 Dose: 2 tab Famotidine (Pepcid) 20 mg PO DAILY [facility] Last Admin: 10/19/16 19:12 Dose: 20 mg Home Med (Febuxostat [Uloric]) 40 mg PO DAILY [facility] Last Admin: 10/19/16 09:59 Dose: Not Given Hydromorphone HCl (Dilaudid) 1.5 mg IVP Q4H PRN PRN Reason: Pain, severe (8-10) Last Admin: 10/20/16 07:21 Dose: 1.5 mg Insulin Aspart (Novolog) 0 unit SC ACHS [facility] PRN Reason: Protocol Last Admin: 10/20/16 07:56 Dose: Not Given Lactic Acid (Lac-Hydrin 12% Lotion (225 G)) 0 gm TOP BID [facility] Last Admin: 10/19/16 18:28 Dose: Not Given Minoxidil (Minoxidil) 2.5 mg PO BID [facility] Last Admin: 10/19/16 19:15 Dose: 2.5 mg Khioc-3-Katk Ethyl Esters (Lovaza) 1 gm PO BID [facility] Last Admin: 10/19/16 18:28 Dose: Not Given Paroxetine HCl (Paxil) 10 mg PO DAILY [facility] Last Admin: 10/19/16 19:14 Dose: 10 mg Rosuvastatin Calcium (Crestor) 10 mg PO HS [facility] Last Admin: 10/19/16 22:32 Dose: Not Given Sevelamer Carbonate (Renvela) 2,400 mg PO TIDCC [facility] Tamsulosin HCl (Flomax) 0.4 mg PO DAILY [facility] Last Admin: 10/19/16 09:59 Dose: Not Given Verapamil HCl (Calan Tab) 120 mg PO DAILY [facility] Last Admin: 10/19/16 19:14 Dose: 120 mg Vitamin B Complex/Vit C/Folic Acid (Nephro-Clayton) 1 tab PO DAILY [facility] Last Admin: 10/19/16 09:59 Dose: Not Given - Labs Labs: 10/18/16 11:06 10/18/16 11:06 PT 12.2 SECONDS (9.7-12.2) 10/18/16 11:06 INR 1.1 10/18/16 11:06 APTT 36 SECONDS (21-34) H 10/18/16 11:06 - Constitutional Appears: Well, No Acute Distress - Head Exam Head Exam: ATRAUMATIC, NORMAL INSPECTION - Eye Exam Eye Exam: EOMI, Normal appearance - ENT Exam ENT Exam: Mucous Membranes Moist, Normal Exam - Respiratory Exam Respiratory Exam: Clear to Ausculation Bilateral, NORMAL BREATHING PATTERN - Cardiovascular Exam Cardiovascular Exam: REGULAR RHYTHM, +S1, +S2 - GI/Abdominal Exam GI & Abdominal Exam: Soft, Normal Bowel Sounds - Extremities Exam Extremities Exam: absent: Calf Tenderness, Tenderness Additional comments: Right femoral catheter in place for HD L AVF, Bruit present by auscultation and thrill present with palpation - Neurological Exam Neurological Exam: Alert, Awake, Oriented x3 - Psychiatric Exam Psychiatric exam: Normal Affect, Normal Mood - Skin Skin Exam: Dry, Normal Color, Warm Assessment and Plan - Assessment and Plan (Free Text) Assessment: 51M w/ clotted L AVF s/p declotting using angiojet thromnectomy device and giovanny ballon embolectomy vatheter POD # 1 and s/p right femoral temporary dialysis catheter insertion POD4 Plan: HD M,W, F Right femoral catheter in place; continue to use for HD Continue medical management as per primary Further recs per Dr. Jazmin Travis, PGY-1 <Arjun Wu - Last Filed: 10/20/16 12:45> Objective - Vital Signs/Intake and Output Vital Signs (last 24 hours): Temp Pulse Resp BP Pulse Ox 98 F 81 20 123/76 99 10/20/16 09:30 10/20/16 09:30 10/20/16 09:30 10/20/16 11:30 10/20/16 09:30 - Medications Medications: Current Medications Apixaban (Eliquis) 2.5 mg PO BID [facility] Last Admin: 10/19/16 19:15 Dose: 2.5 mg Aspirin (Ecotrin) 81 mg PO DAILY [facility] Clopidogrel Bisulfate (Plavix) 75 mg PO DAILY [facility] Last Admin: 10/19/16 09:59 Dose: Not Given Diphenoxylate HCl/Atropine (Lomotil 0.025-2.5 Mg Tablet) 2 tab PO BID PRN PRN Reason: Diarrhea Last Admin: 10/20/16 00:00 Dose: 2 tab Famotidine (Pepcid) 20 mg PO DAILY [facility] Last Admin: 10/19/16 19:12 Dose: 20 mg Heparin Sodium (Porcine) (Heparin) 3,500 units IVP MWF [facility] Last Admin: 10/20/16 12:35 Dose: 3,500 units Home Med (Febuxostat [Uloric]) 40 mg PO DAILY [facility] Last Admin: 10/19/16 09:59 Dose: Not Given Hydromorphone HCl (Dilaudid) 1.5 mg IVP Q4H PRN PRN Reason: Pain, severe (8-10) Last Admin: 10/20/16 11:31 Dose: 1.5 mg Insulin Aspart (Novolog) 0 unit SC ACHS [facility] PRN Reason: Protocol Last Admin: 10/20/16 07:56 Dose: Not Given Lactic Acid (Lac-Hydrin 12% Lotion (225 G)) 0 gm TOP BID [facility] Last Admin: 10/19/16 18:28 Dose: Not Given Minoxidil (Minoxidil) 2.5 mg PO BID [facility] Last Admin: 08/15/17 19:15 Dose: 2.5 mg Pcsyv-0-Cocx Ethyl Esters (Lovaza) 1 gm PO BID [facility] Last Admin: 10/19/16 18:28 Dose: Not Given Paroxetine HCl (Paxil) 10 mg PO DAILY [facility] Last Admin: 10/19/16 19:14 Dose: 10 mg Rosuvastatin Calcium (Crestor) 10 mg PO HS [facility] Last Admin: 10/19/16 22:32 Dose: Not Given Sevelamer Carbonate (Renvela) 2,400 mg PO TIDCC [facility] Tamsulosin HCl (Flomax) 0.4 mg PO DAILY [facility] Last Admin: 10/19/16 09:59 Dose: Not Given Verapamil HCl (Calan Tab) 120 mg PO DAILY [facility] Last Admin: 10/19/16 19:14 Dose: 120 mg Vitamin B Complex/Vit C/Folic Acid (Nephro-Clayton) 1 tab PO DAILY [facility] Last Admin: 10/19/16 09:59 Dose: Not Given - Labs Labs: 10/18/16 11:06 10/18/16 11:06 PT 12.2 SECONDS (9.7-12.2) 10/18/16 11:06 INR 1.1 10/18/16 11:06 APTT 36 SECONDS (21-34) H 10/18/16 11:06 Assessment and Plan - Assessment and Plan (Free Text) Plan: Patient seen and examined in the dialysis unit. NO acute events overnight. Patient complains of post-procedural discomfort in the left arm which is helped by current pain medications. Otherwise, left hand is warm, perfused and motor- sensory at the baseline. There is left upper arm swelling. Left upper arm hero graft has audible bruits on auscultation. Continue current management. The plan is to continue using femoral dialysis catheter while attempting one needle cannulation of the hero graft in two days.
[2016-10-20] MEDS: Ammonium Lactate 12% Lotion (225 g) TOP SCH ×2 (12:25→17:58)
[2016-10-20] MEDS: Omega-3-Acid Ethyl Esters 1 GM Cap PO SCH ×2 (14:20→17:56)
[2016-10-20] MEDS: Multivitamin Vitamin B Complex (Nephro-Vite) Tab PO SCH (14:26)
--- NOTE | 2016-10-20 22:59 | PN ---
DATE: 10/20/2016 SUBJECTIVE: The patient was seen today on 10/20/2016. He had a procedure at the left upper arm yesterday and currently he has hemodialysis through the right femoral catheter.. PHYSICAL EXAMINATION VITAL SIGNS: Blood pressure 134/81,temperature 98.6, respiratory rate 20, and pulse is 95. HEENT: Pupils equal and reactive to light. Normal appearing mucosa, conjunctivae, oropharyngeal, and nasal membrane mucosa. NECK: Supple. No JVD. No carotid bruits. No lymph nodes. No thyromegaly. CHEST AND LUNGS: Bilaterally symmetrical expansion. ABDOMEN: Normoactive bowel sounds. No tenderness. No organomegaly. No masses. EXTREMITIES: No cyanosis, no clubbing and no edema. CENTRAL NERVOUS SYSTEM: Alert, awake, oriented x2. No neurological deficit could be appreciated. ASSESSMENT: 1. Clotted left upper arm AV shunt. 2. End-stage renal disease, on hemodialysis. 3. Type 2 diabetes mellitus. 4. Hypertension. PLAN: Continue current medications, pain management and follow vascular surgery consultation. Addie Vale MD [facility]
--- NOTE | 2016-10-20 23:25 | CP.PCM.PN ---
Subjective - Date & Time of Evaluation Date of Evaluation: 10/20/16 Time of Evaluation: 13:00 - Subjective Subjective: SEEN ON RENAL F/U SEEN ON HD SEEN ALONG WITH VASCULAR SURGERY L ARM AVG .. S/P DECLOTTING .. STILL SWOLLEN WITH LOCAL PAIN STILL USING TE FEMORAL CATH FOR HD Objective - Vital Signs/Intake and Output Vital Signs (last 24 hours): Temp Pulse Resp BP Pulse Ox 98 F 95 H 20 134/81 97 10/20/16 13:00 10/20/16 16:06 10/20/16 16:06 10/20/16 16:06 10/20/16 16:06 - Medications Medications: Current Medications Apixaban (Eliquis) 2.5 mg PO BID [facility] Last Admin: 10/20/16 17:56 Dose: 2.5 mg Aspirin (Ecotrin) 81 mg PO DAILY [facility] Last Admin: 10/20/16 14:20 Dose: 81 mg Clopidogrel Bisulfate (Plavix) 75 mg PO DAILY [facility] Last Admin: 10/20/16 14:20 Dose: 75 mg Diphenoxylate HCl/Atropine (Lomotil 0.025-2.5 Mg Tablet) 2 tab PO BID PRN PRN Reason: Diarrhea Last Admin: 10/20/16 00:00 Dose: 2 tab Famotidine (Pepcid) 20 mg PO DAILY [facility] Last Admin: 10/20/16 14:19 Dose: 20 mg Heparin Sodium (Porcine) (Heparin) 3,500 units IVP MWF [facility] Last Admin: 10/20/16 12:35 Dose: 3,500 units Home Med (Febuxostat [Uloric]) 40 mg PO DAILY [facility] Last Admin: 10/20/16 14:21 Dose: 40 mg Hydromorphone HCl (Dilaudid) 1.5 mg IVP Q4H PRN PRN Reason: Pain, severe (8-10) Last Admin: 10/20/16 19:36 Dose: 1.5 mg Insulin Aspart (Novolog) 0 unit SC ACHS [facility] PRN Reason: Protocol Last Admin: 10/20/16 23:10 Dose: Not Given Lactic Acid (Lac-Hydrin 12% Lotion (225 G)) 0 gm TOP BID [facility] Last Admin: 10/20/16 17:58 Dose: 1 applic Minoxidil (Minoxidil) 2.5 mg PO BID [facility] Last Admin: 10/20/16 17:56 Dose: 2.5 mg Qlhdv-9-Niqj Ethyl Esters (Lovaza) 1 gm PO BID [facility] Last Admin: 10/20/16 17:56 Dose: 1 gm Paroxetine HCl (Paxil) 10 mg PO DAILY [facility] Last Admin: 10/20/16 14:26 Dose: 10 mg Rosuvastatin Calcium (Crestor) 10 mg PO HS [facility] Last Admin: 10/20/16 21:11 Dose: 10 mg Sevelamer Carbonate (Renvela) 2,400 mg PO TIDCC [facility] Last Admin: 10/20/16 17:25 Dose: 2,400 mg Tamsulosin HCl (Flomax) 0.4 mg PO DAILY [facility] Last Admin: 10/20/16 14:20 Dose: 0.4 mg Verapamil HCl (Calan Tab) 120 mg PO DAILY [facility] Last Admin: 10/20/16 14:27 Dose: 120 mg Vitamin B Complex/Vit C/Folic Acid (Nephro-Clayton) 1 tab PO DAILY [facility] Last Admin: 10/20/16 14:26 Dose: 1 tab - Labs Labs: 10/18/16 11:06 10/18/16 11:06 PT 12.2 SECONDS (9.7-12.2) 10/18/16 11:06 INR 1.1 10/18/16 11:06 APTT 36 SECONDS (21-34) H 10/18/16 11:06 Assessment and Plan - Assessment and Plan (Free Text) Assessment: ESRD ON HD M W F ANEMIA OF CKD .. ON EPO S/P AVG DECLOTTING .. THE ARM IS SWOLLEN D/W VASCULAR SURGERY
[2016-10-21] MEDS: (Novolog) Insulin Aspart, Recombinant 100 u/ml 10 ml vial SC SCH ×4 (07:47→22:00)
[2016-10-21] MEDS: Omega-3-Acid Ethyl Esters 1 GM Cap PO SCH ×2 (10:18→17:41)
[2016-10-21] MEDS: Multivitamin Vitamin B Complex (Nephro-Vite) Tab PO SCH (10:20)
[2016-10-21] MEDS: Ammonium Lactate 12% Lotion (225 g) TOP SCH ×2 (10:20→17:45)
--- NOTE | 2016-10-21 10:42 | CP.PCM.PN ---
Subjective - Date & Time of Evaluation Date of Evaluation: 10/21/16 Time of Evaluation: 10:00 - Subjective Subjective: Patient complains of soreness in his left upper arm which is helped with pain medications. Otherwise, he has no acute complaints. Objective - Vital Signs/Intake and Output Vital Signs (last 24 hours): Temp Pulse Resp BP Pulse Ox 98.7 F 91 H 20 169/80 H 95 10/21/16 07:48 10/21/16 07:48 10/21/16 07:48 10/21/16 07:48 10/21/16 07:48 Intake and Output: 10/21/16 10/21/16 06:59 18:59 Intake Total 240 Balance 240 - Medications Medications: Current Medications Apixaban (Eliquis) 2.5 mg PO BID [facility] Last Admin: 10/21/16 10:19 Dose: 2.5 mg Aspirin (Ecotrin) 81 mg PO DAILY [facility] Last Admin: 10/21/16 10:19 Dose: 81 mg Clopidogrel Bisulfate (Plavix) 75 mg PO DAILY [facility] Last Admin: 10/21/16 10:19 Dose: 75 mg Diphenoxylate HCl/Atropine (Lomotil 0.025-2.5 Mg Tablet) 2 tab PO BID PRN PRN Reason: Diarrhea Last Admin: 10/20/16 00:00 Dose: 2 tab Famotidine (Pepcid) 20 mg PO DAILY [facility] Last Admin: 10/21/16 10:19 Dose: 20 mg Heparin Sodium (Porcine) (Heparin) 3,500 units IVP MWF [facility] Last Admin: 10/20/16 12:35 Dose: 3,500 units Home Med (Febuxostat [Uloric]) 40 mg PO DAILY [facility] Last Admin: 10/21/16 10:23 Dose: 40 mg Hydromorphone HCl (Dilaudid) 1.5 mg IVP Q4H PRN PRN Reason: Pain, severe (8-10) Last Admin: 10/21/16 07:08 Dose: 1.5 mg Insulin Aspart (Novolog) 0 unit SC ACHS [facility] PRN Reason: Protocol Last Admin: 10/21/16 07:47 Dose: Not Given Lactic Acid (Lac-Hydrin 12% Lotion (225 G)) 0 gm TOP BID [facility] Last Admin: 10/21/16 10:20 Dose: 1 applic Minoxidil (Minoxidil) 2.5 mg PO BID [facility] Last Admin: 10/21/16 10:20 Dose: 2.5 mg Vpmkz-0-Wawb Ethyl Esters (Lovaza) 1 gm PO BID [facility] Last Admin: 10/21/16 10:18 Dose: 1 gm Paroxetine HCl (Paxil) 10 mg PO DAILY [facility] Last Admin: 10/21/16 10:20 Dose: 10 mg Rosuvastatin Calcium (Crestor) 10 mg PO HS [facility] Last Admin: 10/20/16 21:11 Dose: 10 mg Sevelamer Carbonate (Renvela) 2,400 mg PO TIDCC [facility] Last Admin: 10/21/16 07:46 Dose: 2,400 mg Tamsulosin HCl (Flomax) 0.4 mg PO DAILY [facility] Last Admin: 10/21/16 10:19 Dose: 0.4 mg Verapamil HCl (Calan Tab) 120 mg PO DAILY [facility] Last Admin: 10/21/16 10:20 Dose: 120 mg Vitamin B Complex/Vit C/Folic Acid (Nephro-Clayton) 1 tab PO DAILY [facility] Last Admin: 10/21/16 10:20 Dose: 1 tab - Labs Labs: 10/18/16 11:06 10/18/16 11:06 PT 12.2 SECONDS (9.7-12.2) 10/18/16 11:06 INR 1.1 10/18/16 11:06 APTT 36 SECONDS (21-34) H 10/18/16 11:06 - Constitutional Appears: Non-toxic, No Acute Distress - Head Exam Head Exam: ATRAUMATIC, NORMAL INSPECTION, NORMOCEPHALIC - Eye Exam Eye Exam: EOMI, Normal appearance, PERRL Pupil Exam: NORMAL ACCOMODATION - ENT Exam ENT Exam: Normal Exam - Neck Exam Neck Exam: Full ROM - Respiratory Exam Respiratory Exam: NORMAL BREATHING PATTERN - Cardiovascular Exam Cardiovascular Exam: REGULAR RHYTHM, RRR. absent: JVD - GI/Abdominal Exam GI & Abdominal Exam: Soft, Normal Bowel Sounds - Extremities Exam Extremities Exam: Normal Capillary Refill - Neurological Exam Neurological Exam: Alert, Awake, Oriented x3 - Skin Skin Exam: Normal Color, Warm - Additional Findings Additional findings: Left upper extremity shows no signs of ischemia. Left hand is warm and perfused. There is audible bruits in the left upper arm HeRO graft on auscultation. Assessment and Plan - Assessment and Plan (Free Text) Plan: Left upper arm HeRO graft has clearly audible bruits on auscultation. The plan is to attempt one needle cannulation of the graft tomorrow while using femoral dialysis catheter. If HeRO graft is functional will plan to remove femoral catheter. Otherwise will discuss available options for dialysis access.
[2016-10-21] MEDS: Tobramycin 0.3% OPHT SOLN OU SCH ×2 (14:50→17:44)
--- NOTE | 2016-10-21 16:54 | CP.PCM.PN ---
Subjective - Date & Time of Evaluation Date of Evaluation: 10/21/16 Time of Evaluation: 14:00 - Subjective Subjective: SEEN ON RENAL F/U L U EXT PAIN IS LESS FOR HD IN AM .. WILL USE ONE NEEDLE 17 G STILL WITH L FEMORAL CATH Objective - Vital Signs/Intake and Output Vital Signs (last 24 hours): Temp Pulse Resp BP Pulse Ox 98.7 F 91 H 20 169/80 H 95 10/21/16 07:48 10/21/16 07:48 10/21/16 07:48 10/21/16 07:48 10/21/16 07:48 Intake and Output: 10/21/16 10/21/16 06:59 18:59 Intake Total 240 Balance 240 - Medications Medications: Current Medications Apixaban (Eliquis) 2.5 mg PO BID [facility] Last Admin: 10/21/16 10:19 Dose: 2.5 mg Aspirin (Ecotrin) 81 mg PO DAILY [facility] Last Admin: 10/21/16 10:19 Dose: 81 mg Clopidogrel Bisulfate (Plavix) 75 mg PO DAILY [facility] Last Admin: 10/21/16 10:19 Dose: 75 mg Diphenoxylate HCl/Atropine (Lomotil 0.025-2.5 Mg Tablet) 2 tab PO BID PRN PRN Reason: Diarrhea Last Admin: 10/20/16 00:00 Dose: 2 tab Famotidine (Pepcid) 20 mg PO DAILY [facility] Last Admin: 10/21/16 10:19 Dose: 20 mg Heparin Sodium (Porcine) (Heparin) 3,500 units IVP MWF [facility] Last Admin: 10/20/16 12:35 Dose: 3,500 units Heparin Sodium (Porcine) (Heparin) 2,000 units IV ONCE ONE Stop: 10/22/16 15:31 Home Med (Febuxostat [Uloric]) 40 mg PO DAILY [facility] Last Admin: 10/21/16 10:23 Dose: 40 mg Hydromorphone HCl (Dilaudid) 1.5 mg IVP Q4H PRN PRN Reason: Pain, severe (8-10) Last Admin: 10/21/16 15:16 Dose: 1.5 mg Insulin Aspart (Novolog) 0 unit SC ACHS [facility] PRN Reason: Protocol Last Admin: 10/21/16 11:27 Dose: 2 unit Lactic Acid (Lac-Hydrin 12% Lotion (225 G)) 0 gm TOP BID [facility] Last Admin: 10/21/16 10:20 Dose: 1 applic Lidocaine/Prilocaine (Emla) 0 gm EXT MWF [facility] Minoxidil (Minoxidil) 2.5 mg PO BID [facility] Last Admin: 10/21/16 10:20 Dose: 2.5 mg Ltffb-0-Ykrn Ethyl Esters (Lovaza) 1 gm PO BID [facility] Last Admin: 10/21/16 10:18 Dose: 1 gm Paroxetine HCl (Paxil) 10 mg PO DAILY [facility] Last Admin: 10/21/16 10:20 Dose: 10 mg Rosuvastatin Calcium (Crestor) 10 mg PO HS [facility] Last Admin: 10/20/16 21:11 Dose: 10 mg Sevelamer Carbonate (Renvela) 2,400 mg PO TIDCC [facility] Last Admin: 10/21/16 11:29 Dose: 2,400 mg Tamsulosin HCl (Flomax) 0.4 mg PO DAILY [facility] Last Admin: 10/21/16 10:19 Dose: 0.4 mg Tobramycin Sulfate (Tobrex 0.3% [facility]) 1 drop OU TID [facility] Last Admin: 10/21/16 14:50 Dose: Not Given Verapamil HCl (Calan Tab) 120 mg PO DAILY [facility] Last Admin: 10/21/16 10:20 Dose: 120 mg Vitamin B Complex/Vit C/Folic Acid (Nephro-Clayton) 1 tab PO DAILY [facility] Last Admin: 10/21/16 10:20 Dose: 1 tab - Labs Labs: 10/18/16 11:06 10/18/16 11:06 PT 12.2 SECONDS (9.7-12.2) 10/18/16 11:06 INR 1.1 10/18/16 11:06 APTT 36 SECONDS (21-34) H 10/18/16 11:06 Assessment and Plan - Assessment and Plan (Free Text) Assessment: ESRD ON HD M W F ANEMIA OF CKD .. H/H STABLE S/P L U E HERO GRAFT DETHROMBOSIS P : WILL USE ONE NEEDLE IN GRAFT IN AM AND ONE NEEDLE IN R FEMORAL CATH C/O [facility]
--- NOTE | 2016-10-21 21:41 | PN ---
DATE: 10/21/2016 SUBJECTIVE: He complains of constipation. The patient started to have vascular procedure in the morning. PHYSICAL EXAMINATION VITAL SIGNS: Blood pressure 127/72, temperature 98.5, respiratory rate 20, and pulse 87. HEENT: Pupils equal, reactive to light. Normal appearing mucosa of the conjunctivae, oropharyngeal, and nasal membrane mucosa. NECK: Supple. No JVD. No carotid bruit. No lymph node. No thyromegaly. CHEST AND LUNGS: Bilateral symmetrical expansion. Good air exchange. No rales and no rhonchi. CARDIOVASCULAR SYSTEM: PMI not localized. S1 and S2. No additional sounds. ABDOMEN: Normoactive bowel sounds. No tenderness, no organomegaly, no masses. EXTREMITIES: No cyanosis, no clubbing, no edema. CENTRAL NERVOUS SYSTEM: Alert, awake, and oriented x3. No neurological deficit could be appreciated. ASSESSMENT: 1. Clotted left upper arm dialysis access. 2. End-stage renal disease, on hemodialysis. 3. Hypertension. 4. Type 2 diabetes mellitus. PLAN: We will continue current medications and we will give the patient Lactulose 30 mL every 4 hours until bowel movement. Addie Vale MD
[2016-10-22] MEDS: (Novolog) Insulin Aspart, Recombinant 100 u/ml 10 ml vial SC SCH ×4 (07:51→21:55)
[2016-10-22] MEDS: Lidocaine/Prilocaine 2.5%-2.5% Cream (5 gm) EXT SCH (09:08)
[2016-10-22] MEDS: Ammonium Lactate 12% Lotion (225 g) TOP SCH ×2 (10:00→17:48)
[2016-10-22] MEDS: Tobramycin 0.3% OPHT SOLN OU SCH ×3 (10:00→17:50)
[2016-10-22] MEDS: Multivitamin Vitamin B Complex (Nephro-Vite) Tab PO SCH (12:52)
[2016-10-22] MEDS: Omega-3-Acid Ethyl Esters 1 GM Cap PO SCH ×2 (12:52→17:49)
[2016-10-22 16:33] LABS: BASO # 0.1 K/uL (0.0-0.2); BASO % 1.1 % (0.0-2.0); EOS # 0.4 K/uL (0.0-0.7); EOS % 6.1 % (0.0-4.0); HEMATOCRIT 35.4 % (35.0-51.0); LYMPH # 1.1 K/uL (1.0-4.3); MEAN CELL VOLUME 80.9 fL (80.0-94.0); MEAN CORPUSCULAR HEMOGLOBIN 26.2 pg (27.0-31.0); MEAN CORPUSCULAR HGB CONC 32.3 g/dL (33.0-37.0); MEAN PLATELET VOLUME 7.1 fL (7.2-11.7); MONO % 14.4 % (0.0-10.0); RED CELL DISTRIBUTION WIDTH 16.4 % (11.5-14.5); WHITE BLOOD COUNT 6.7 K/uL (4.8-10.8)
[2016-10-22 16:48] LABS: ALB/GLOB RATIO 1.1 (1.0-2.1); BILIRUBIN,TOTAL 0.6 mg/dL (0.2-1.3); CALCIUM 10.4 mg/dl (8.6-10.4); POTASSIUM 3.7 mmol/L (3.6-5.2); TOTAL PROTEIN 6.8 g/dL (6.3-8.3)
--- NOTE | 2016-10-22 19:16 | CP.PCM.PN ---
Subjective - Date & Time of Evaluation Date of Evaluation: 10/22/16 Time of Evaluation: 15:30 - Subjective Subjective: SEEN ON RENAL F/U STILL WITH PAIN ON L UPPER ARM HAD SEVERE OAIN ON AVG . DID NOT USE ONE NEEDLE IN AVG Objective - Vital Signs/Intake and Output Vital Signs (last 24 hours): Temp Pulse Resp BP Pulse Ox 98.5 F 105 H 20 131/73 96 10/22/16 16:00 10/22/16 16:00 10/22/16 16:00 10/22/16 16:00 10/22/16 16:00 Intake and Output: 10/22/16 10/23/16 18:59 06:59 Intake Total 420 Balance 420 - Medications Medications: Current Medications Apixaban (Eliquis) 2.5 mg PO BID [facility] Last Admin: 10/22/16 17:49 Dose: 2.5 mg Aspirin (Ecotrin) 81 mg PO DAILY [facility] Last Admin: 10/22/16 12:51 Dose: 81 mg Clopidogrel Bisulfate (Plavix) 75 mg PO DAILY [facility] Last Admin: 10/22/16 12:53 Dose: 75 mg Diphenoxylate HCl/Atropine (Lomotil 0.025-2.5 Mg Tablet) 2 tab PO BID PRN PRN Reason: Diarrhea Last Admin: 10/20/16 00:00 Dose: 2 tab Famotidine (Pepcid) 20 mg PO DAILY [facility] Last Admin: 10/22/16 12:51 Dose: 20 mg Heparin Sodium (Porcine) (Heparin) 3,500 units IVP MWF [facility] Last Admin: 10/22/16 11:23 Dose: 3,500 units Home Med (Febuxostat [Uloric]) 40 mg PO DAILY [facility] Last Admin: 10/22/16 13:04 Dose: 40 mg Hydromorphone HCl (Dilaudid) 1.5 mg IVP Q4H PRN PRN Reason: Pain, severe (8-10) Last Admin: 10/22/16 17:16 Dose: 1.5 mg Insulin Aspart (Novolog) 0 unit SC ACHS [facility] PRN Reason: Protocol Last Admin: 10/22/16 17:47 Dose: Not Given Lactic Acid (Lac-Hydrin 12% Lotion (225 G)) 0 gm TOP BID [facility] Last Admin: 10/22/16 17:48 Dose: 1 applic Lactulose (Enulose) 20 gm PO Q4 PRN PRN Reason: Constipation Last Admin: 10/21/16 21:57 Dose: 20 gm Lidocaine/Prilocaine (Emla) 0 gm EXT MWF [facility] Last Admin: 10/22/16 09:08 Dose: 1 applic Minoxidil (Minoxidil) 2.5 mg PO BID [facility] Last Admin: 10/22/16 17:49 Dose: 2.5 mg Gapqm-6-Vcdc Ethyl Esters (Lovaza) 1 gm PO BID [facility] Last Admin: 10/22/16 17:49 Dose: 1 gm Paroxetine HCl (Paxil) 10 mg PO DAILY [facility] Last Admin: 10/22/16 12:53 Dose: 10 mg Pneumococcal Polyvalent Vaccine (Pneumovax 23 Vaccine) 0.5 ml IM .ONCE ONE Stop: 10/23/16 10:01 Rosuvastatin Calcium (Crestor) 10 mg PO HS [facility] Last Admin: 10/21/16 21:57 Dose: 10 mg Sevelamer Carbonate (Renvela) 2,400 mg PO TIDCC [facility] Last Admin: 10/22/16 17:50 Dose: 2,400 mg Tamsulosin HCl (Flomax) 0.4 mg PO DAILY [facility] Last Admin: 10/22/16 13:04 Dose: 0.4 mg Tobramycin Sulfate (Tobrex 0.3% [facility]) 1 drop OU TID [facility] Last Admin: 10/22/16 17:50 Dose: 1 drop Verapamil HCl (Calan Tab) 120 mg PO DAILY [facility] Last Admin: 10/22/16 13:06 Dose: 120 mg Vitamin B Complex/Vit C/Folic Acid (Nephro-Clayton) 1 tab PO DAILY [facility] Last Admin: 10/22/16 12:52 Dose: 1 tab - Labs Labs: 10/22/16 16:26 10/22/16 16:26 PT 12.2 SECONDS (9.7-12.2) 10/18/16 11:06 INR 1.1 10/18/16 11:06 APTT 36 SECONDS (21-34) H 10/18/16 11:06 Assessment and Plan - Assessment and Plan (Free Text) Assessment: ESRD ON HD M W F WILL GIVE EXTRA HD IN AM .. WILL ATTEMPT ONE NEEDLE IN AVG C/O CURRENT CARE
--- NOTE | 2016-10-23 00:11 | PN ---
DATE: 10/22/2016 SUBJECTIVE: The patient is seen today. He is status post vascular procedure to declot the left upper arm shunt. The patient was seen during hemodialysis. The patient could not tolerate one needle cannulation of shunt due to pain. The patient was being dialyzed from the femoral catheter. PHYSICAL EXAMINATION VITAL SIGNS: Blood pressure was 131/73, temperature 98.5, respiratory rate 20 and pulse 100. HEENT: Pupils equal, reactive to light. Normal appearing mucosa of the conjunctivae, oropharyngeal, and nasal membrane mucosa. NECK: Supple. No JVD. No carotid bruit. No lymph node. No thyromegaly. CHEST AND LUNGS: Bilateral symmetrical expansion. Good air exchange. No rales and no rhonchi. CARDIOVASCULAR SYSTEM: PMI not localized. S1 and S2. No additional sounds. ABDOMEN: Normoactive bowel sounds. No tenderness. No organomegaly. No masses. EXTREMITIES: No cyanosis. No clubbing. No edema. CENTRAL NERVOUS SYSTEM: Alert, awake, and oriented x2. No neurological deficit could be appreciated. ASSESSMENT: 1. Clotted arteriovenous graft, status post declotting procedure. 2. Right femoral catheter for hemodialysis. 3. Hypertension. 4. Atrial fibrillation. 5. Type 2 diabetes mellitus. 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 Addie Vale MD
[2016-10-23] MEDS: (Novolog) Insulin Aspart, Recombinant 100 u/ml 10 ml vial SC SCH ×4 (07:47→22:10)
[2016-10-23] MEDS: Lidocaine/Prilocaine 2.5%-2.5% Cream (5 gm) EXT SCH (08:48)
[2016-10-23] MEDS: Omega-3-Acid Ethyl Esters 1 GM Cap PO SCH ×2 (09:18→18:36)
[2016-10-23] MEDS: Ammonium Lactate 12% Lotion (225 g) TOP SCH ×2 (09:18→18:40)
[2016-10-23] MEDS: Multivitamin Vitamin B Complex (Nephro-Vite) Tab PO SCH (09:18)
[2016-10-23] MEDS ORDERED: Pneumococcal 23-Valent Vaccine IM ONE ×2 (10:00→13:15)
[2016-10-23] MEDS: Tobramycin 0.3% OPHT SOLN OU SCH ×2 (13:00→18:41)
--- NOTE | 2016-10-23 15:49 | CP.PCM.PN ---
Subjective - Date & Time of Evaluation Date of Evaluation: 10/23/16 Time of Evaluation: 15:47 - Subjective Subjective: on hd today able to cannulate with one needle vss rafael proc cont rx and support. Objective - Vital Signs/Intake and Output Vital Signs (last 24 hours): Temp Pulse Resp BP Pulse Ox 98 F 88 18 143/85 98 10/23/16 10:00 10/23/16 12:00 10/23/16 12:00 10/23/16 12:00 10/23/16 12:00 Intake and Output: 10/23/16 10/23/16 06:59 18:59 Intake Total 300 400 Balance 300 400 - Medications Medications: Current Medications Apixaban (Eliquis) 2.5 mg PO BID [facility] Last Admin: 10/23/16 09:18 Dose: Not Given Aspirin (Ecotrin) 81 mg PO DAILY [facility] Last Admin: 10/23/16 09:17 Dose: Not Given Clopidogrel Bisulfate (Plavix) 75 mg PO DAILY [facility] Last Admin: 10/23/16 09:19 Dose: Not Given Diphenoxylate HCl/Atropine (Lomotil 0.025-2.5 Mg Tablet) 2 tab PO BID PRN PRN Reason: Diarrhea Last Admin: 10/20/16 00:00 Dose: 2 tab Famotidine (Pepcid) 20 mg PO DAILY [facility] Last Admin: 10/23/16 09:19 Dose: Not Given Heparin Sodium (Porcine) (Heparin) 3,500 units IVP MWF [facility] Last Admin: 10/22/16 11:23 Dose: 3,500 units Home Med (Febuxostat [Uloric]) 40 mg PO DAILY [facility] Last Admin: 10/23/16 09:18 Dose: Not Given Hydromorphone HCl (Dilaudid) 1.5 mg IVP Q4H PRN PRN Reason: Pain, severe (8-10) Last Admin: 10/23/16 12:36 Dose: 1.5 mg Insulin Aspart (Novolog) 0 unit SC ACHS [facility] PRN Reason: Protocol Last Admin: 10/23/16 12:31 Dose: Not Given Lactic Acid (Lac-Hydrin 12% Lotion (225 G)) 0 gm TOP BID [facility] Last Admin: 10/23/16 09:18 Dose: Not Given Lactulose (Enulose) 20 gm PO Q4 PRN PRN Reason: Constipation Last Admin: 10/23/16 13:34 Dose: 20 gm Lidocaine/Prilocaine (Emla) 0 gm EXT MWF [facility] Last Admin: 10/23/16 08:48 Dose: 1 applic Minoxidil (Minoxidil) 2.5 mg PO BID [facility] Last Admin: 10/23/16 09:18 Dose: Not Given Loutb-8-Ezhq Ethyl Esters (Lovaza) 1 gm PO BID [facility] Last Admin: 10/23/16 09:18 Dose: Not Given Paroxetine HCl (Paxil) 10 mg PO DAILY [facility] Last Admin: 10/23/16 12:56 Dose: 10 mg Rosuvastatin Calcium (Crestor) 10 mg PO HS [facility] Last Admin: 10/22/16 21:53 Dose: 10 mg Sevelamer Carbonate (Renvela) 2,400 mg PO TIDCC [facility] Last Admin: 10/23/16 12:57 Dose: 2,400 mg Tamsulosin HCl (Flomax) 0.4 mg PO DAILY [facility] Last Admin: 10/23/16 09:18 Dose: Not Given Tobramycin Sulfate (Tobrex 0.3% [facility] Sol[facility]) 1 drop OU TID [facility] Last Admin: 10/23/16 13:00 Dose: 1 drop Verapamil HCl (Calan Tab) 120 mg PO DAILY [facility] Last Admin: 10/23/16 09:17 Dose: Not Given Vitamin B Complex/Vit C/Folic Acid (Nephro-Clayton) 1 tab PO DAILY [facility] Last Admin: 10/23/16 09:18 Dose: Not Given - Labs Labs: 10/22/16 16:26 10/22/16 16:26 PT 12.2 SECONDS (9.7-12.2) 10/18/16 11:06 INR 1.1 10/18/16 11:06 APTT 36 SECONDS (21-34) H 10/18/16 11:06 - Constitutional Appears: Non-toxic - Head Exam Head Exam: NORMAL INSPECTION - Eye Exam Eye Exam: Normal appearance - ENT Exam ENT Exam: Mucous Membranes Moist - Respiratory Exam Respiratory Exam: NORMAL BREATHING PATTERN - Cardiovascular Exam Cardiovascular Exam: REGULAR RHYTHM - GI/Abdominal Exam GI & Abdominal Exam: Soft - Neurological Exam Neurological Exam: Alert, Awake - Psychiatric Exam Psychiatric exam: Normal Affect, Normal Mood - Skin Skin Exam: Dry, Normal Color, Warm
--- NOTE | 2016-10-24 00:29 | PN ---
DAILY PROGRESS NOTE DATE: 10/23/2016 SUBJECTIVE: He is not in any cardiopulmonary distress. PHYSICAL EXAMINATION: VITAL SIGNS: Blood pressure 120/90, temperature 99, respiratory rate 20 and pulse 120. HEENT: Pupils equal, reactive to light. Normal appearing mucosa of the conjunctivae, oropharyngeal and nasal membrane mucosa. NECK: Supple. No JVD. No carotid bruit. No lymph node. No thyromegaly. CHEST AND LUNGS: Bilateral symmetrical expansion. Good air exchange. No rales. No rhonchi. CARDIOVASCULAR SYSTEM: PMI not localized. S1 and S2. No additional sounds. ABDOMEN: Normoactive bowel sounds. No tenderness. No organomegaly. No masses. EXTREMITIES: No cyanosis. No clubbing. No edema. CENTRAL NERVOUS SYSTEM: Alert, awake, and oriented x2. No neurological deficit could be appreciated. ASSESSMENT: Clotted left upper arm shunt, end-stage renal disease on hemodialysis, hypertension, anemia of chronic disease and type 2 diabetes mellitus. PLAN: Continue current management and the patient had already hemodialysis today with one needle cannulation of the left upper arm. The patient will have another attempt of hemodialysis on Tuesday with removal of the right femoral catheter after be able to dialyzed from the left upper arm shunt. Continue current management. Addie Vale MD
[2016-10-24] MEDS: (Novolog) Insulin Aspart, Recombinant 100 u/ml 10 ml vial SC SCH ×4 (07:51→21:49)
[2016-10-24] MEDS: Tobramycin 0.3% OPHT SOLN OU SCH ×4 (10:22→19:10)
[2016-10-24] MEDS: Multivitamin Vitamin B Complex (Nephro-Vite) Tab PO SCH (10:23)
[2016-10-24] MEDS: Omega-3-Acid Ethyl Esters 1 GM Cap PO SCH ×2 (10:24→19:09)
[2016-10-24] MEDS: Ammonium Lactate 12% Lotion (225 g) TOP SCH ×2 (10:27→19:08)
--- NOTE | 2016-10-25 00:39 | CP.PCM.PN ---
Subjective - Date & Time of Evaluation Date of Evaluation: 10/25/16 Time of Evaluation: 00:29 - Subjective Subjective: Patient has no immediate or acute complaints. Objective - Vital Signs/Intake and Output Vital Signs (last 24 hours): Temp Pulse Resp BP Pulse Ox 98.7 F 86 20 133/85 98 10/24/16 15:00 10/24/16 15:00 10/24/16 15:00 10/24/16 15:00 10/24/16 15:00 Intake and Output: 10/24/16 10/25/16 18:59 06:59 Intake Total 320 Balance 320 - Medications Medications: Current Medications Apixaban (Eliquis) 2.5 mg PO BID [facility] Last Admin: 10/24/16 19:08 Dose: 2.5 mg Aspirin (Ecotrin) 81 mg PO DAILY [facility] Last Admin: 10/24/16 10:23 Dose: 81 mg Clopidogrel Bisulfate (Plavix) 75 mg PO DAILY [facility] Last Admin: 10/24/16 10:24 Dose: 75 mg Diphenoxylate HCl/Atropine (Lomotil 0.025-2.5 Mg Tablet) 2 tab PO BID PRN PRN Reason: Diarrhea Last Admin: 10/20/16 00:00 Dose: 2 tab Famotidine (Pepcid) 20 mg PO DAILY [facility] Last Admin: 10/24/16 10:25 Dose: 20 mg Heparin Sodium (Porcine) (Heparin) 3,500 units IVP MWF [facility] Last Admin: 10/22/16 11:23 Dose: 3,500 units Home Med (Febuxostat [Uloric]) 40 mg PO DAILY [facility] Last Admin: 10/24/16 10:26 Dose: 40 mg Hydromorphone HCl (Dilaudid) 1.5 mg IVP Q4H PRN PRN Reason: Pain, severe (8-10) Last Admin: 10/24/16 23:04 Dose: 1.5 mg Insulin Aspart (Novolog) 0 unit SC ACHS [facility] PRN Reason: Protocol Last Admin: 10/24/16 21:49 Dose: Not Given Lactic Acid (Lac-Hydrin 12% Lotion (225 G)) 0 gm TOP BID [facility] Last Admin: 10/24/16 19:08 Dose: 1 applic Lactulose (Enulose) 20 gm PO Q4 PRN PRN Reason: Constipation Last Admin: 10/23/16 13:34 Dose: 20 gm Lidocaine/Prilocaine (Emla) 0 gm EXT MWF [facility] Last Admin: 10/23/16 08:48 Dose: 1 applic Minoxidil (Minoxidil) 2.5 mg PO BID [facility] Last Admin: 10/24/16 19:09 Dose: 2.5 mg Tkeie-4-Exgu Ethyl Esters (Lovaza) 1 gm PO BID [facility] Last Admin: 10/24/16 19:09 Dose: 1 gm Paroxetine HCl (Paxil) 10 mg PO DAILY [facility] Last Admin: 10/24/16 10:23 Dose: 10 mg Rosuvastatin Calcium (Crestor) 10 mg PO HS [facility] Last Admin: 10/24/16 21:31 Dose: 10 mg Sevelamer Carbonate (Renvela) 2,400 mg PO TIDCC [facility] Last Admin: 10/24/16 19:10 Dose: 2,400 mg Tamsulosin HCl (Flomax) 0.4 mg PO DAILY [facility] Last Admin: 10/24/16 10:24 Dose: 0.4 mg Tobramycin Sulfate (Tobrex 0.3% [facility]) 1 drop OU TID [facility] Last Admin: 10/24/16 19:10 Dose: 1 drop Verapamil HCl (Calan Tab) 120 mg PO DAILY [facility] Last Admin: 10/24/16 10:23 Dose: 120 mg Vitamin B Complex/Vit C/Folic Acid (Nephro-Clayton) 1 tab PO DAILY [facility] Last Admin: 10/24/16 10:23 Dose: 1 tab - Labs Labs: 10/22/16 16:26 10/22/16 16:26 PT 12.2 SECONDS (9.7-12.2) 10/18/16 11:06 INR 1.1 10/18/16 11:06 APTT 36 SECONDS (21-34) H 10/18/16 11:06 - Constitutional Appears: Non-toxic, No Acute Distress - Head Exam Head Exam: ATRAUMATIC, NORMOCEPHALIC - Eye Exam Eye Exam: EOMI, Normal appearance, PERRL Pupil Exam: PERRL - ENT Exam ENT Exam: Normal Exam - Neck Exam Neck Exam: Normal Inspection - Respiratory Exam Respiratory Exam: NORMAL BREATHING PATTERN - Cardiovascular Exam Cardiovascular Exam: REGULAR RHYTHM, RRR. absent: JVD - GI/Abdominal Exam GI & Abdominal Exam: Soft. absent: Tenderness - Neurological Exam Neurological Exam: Alert, Awake, Oriented x3 - Psychiatric Exam Psychiatric exam: Normal Affect, Normal Mood - Skin Skin Exam: Normal Color - Additional Findings Additional findings: Left hand is warm and perfused with no signs of ischemia. Left upper arm AV graft has clearly audible bruits. Right groin femoral dialysis catheter is in place - no evidence of hematoma, cellulitis, purulence or erythema. Assessment and Plan - Assessment and Plan (Free Text) Plan: Patient appears to be stable clinically. There are no systemic signs of infection. He was dialyzed one the day prior with one needle HeRO graft cannulation. The plan is to attempt dialysis in the morning using two needle cannulation of the HeRO graft -- if successful, right groin femoral dialysis catheter should be removed provided it is OK by Dr. Grijalva. At this point, patient is under care of Dr. Grijalva who should be contacted to make final decisions regarding dialysis access.
[2016-10-25] MEDS: (Novolog) Insulin Aspart, Recombinant 100 u/ml 10 ml vial SC SCH ×4 (07:30→22:10)
[2016-10-25] MEDS: Lidocaine/Prilocaine 2.5%-2.5% Cream (5 gm) EXT SCH (09:00)
[2016-10-25] MEDS: Tobramycin 0.3% OPHT SOLN OU SCH ×4 (10:04→19:42)
[2016-10-25] MEDS: Omega-3-Acid Ethyl Esters 1 GM Cap PO SCH ×2 (10:05→19:44)
[2016-10-25] MEDS: Multivitamin Vitamin B Complex (Nephro-Vite) Tab PO SCH (10:06)
[2016-10-25] MEDS: Ammonium Lactate 12% Lotion (225 g) TOP SCH ×2 (10:07→19:45)
[2016-10-25] MEDS: HYDROmorphone 1 mg/ml ISec IVP PRN ×2 (15:27→19:39)
[2016-10-25 16:41] VITALS: RESP 20
--- NOTE | 2016-10-25 19:33 | CP.PCM.PN ---
Subjective - Date & Time of Evaluation Date of Evaluation: 10/25/16 Time of Evaluation: 13:00 - Subjective Subjective: SEEN ON RENAL F/U SEEN ON HD .. ONE ARTERIAL NEEDLE WAS USED TOLERATED HD WELL Objective - Vital Signs/Intake and Output Vital Signs (last 24 hours): Temp Pulse Resp BP Pulse Ox 98.7 F 116 H 20 106/74 96 10/25/16 16:00 10/25/16 16:00 10/25/16 16:00 10/25/16 16:00 10/25/16 16:00 Intake and Output: 10/25/16 10/26/16 18:59 06:59 Intake Total 200 Balance 200 - Medications Medications: Current Medications Apixaban (Eliquis) 2.5 mg PO BID [facility] Last Admin: 10/25/16 10:06 Dose: 2.5 mg Aspirin (Ecotrin) 81 mg PO DAILY [facility] Last Admin: 10/25/16 10:06 Dose: 81 mg Clopidogrel Bisulfate (Plavix) 75 mg PO DAILY [facility] Last Admin: 10/25/16 10:06 Dose: 75 mg Diphenoxylate HCl/Atropine (Lomotil 0.025-2.5 Mg Tablet) 2 tab PO BID PRN PRN Reason: Diarrhea Last Admin: 10/20/16 00:00 Dose: 2 tab Famotidine (Pepcid) 20 mg PO DAILY [facility] Last Admin: 10/25/16 10:06 Dose: 20 mg Home Med (Febuxostat [Uloric]) 40 mg PO DAILY [facility] Last Admin: 10/25/16 10:00 Dose: Not Given Hydromorphone HCl (Dilaudid) 1 mg IVP Q4H PRN PRN Reason: Pain, severe (8-10) Last Admin: 10/25/16 15:27 Dose: 1 mg Insulin Aspart (Novolog) 0 unit SC ACHS [facility] PRN Reason: Protocol Last Admin: 10/25/16 16:18 Dose: Not Given Lactic Acid (Lac-Hydrin 12% Lotion (225 G)) 0 gm TOP BID [facility] Last Admin: 10/25/16 10:07 Dose: 1 applic Lactulose (Enulose) 20 gm PO Q4 PRN PRN Reason: Constipation Last Admin: 10/25/16 16:23 Dose: 20 gm Lidocaine/Prilocaine (Emla) 0 gm EXT MWF [facility] Last Admin: 10/25/16 09:00 Dose: 1 applic Minoxidil (Minoxidil) 2.5 mg PO BID [facility] Last Admin: 10/25/16 10:15 Dose: Not Given Buvfh-2-Zkgr Ethyl Esters (Lovaza) 1 gm PO BID [facility] Last Admin: 10/25/16 10:05 Dose: 1 gm Paroxetine HCl (Paxil) 10 mg PO DAILY [facility] Last Admin: 10/25/16 10:06 Dose: 10 mg Rosuvastatin Calcium (Crestor) 10 mg PO HS [facility] Last Admin: 10/24/16 21:31 Dose: 10 mg Sevelamer Carbonate (Renvela) 2,400 mg PO TIDCC [facility] Last Admin: 10/25/16 16:23 Dose: 2,400 mg Tamsulosin HCl (Flomax) 0.4 mg PO DAILY [facility] Last Admin: 10/25/16 10:06 Dose: 0.4 mg Tobramycin Sulfate (Tobrex 0.3% [facility]) 1 drop OU TID [facility] Last Admin: 10/25/16 15:34 Dose: 1 drop Verapamil HCl (Calan Tab) 120 mg PO DAILY [facility] Last Admin: 10/25/16 10:12 Dose: Not Given Vitamin B Complex/Vit C/Folic Acid (Nephro-Clayton) 1 tab PO DAILY [facility] Last Admin: 10/25/16 10:06 Dose: 1 tab - Labs Labs: 10/22/16 16:26 10/22/16 16:26 PT 12.2 SECONDS (9.7-12.2) 10/18/16 11:06 INR 1.1 10/18/16 11:06 APTT 36 SECONDS (21-34) H 10/18/16 11:06 Assessment and Plan - Assessment and Plan (Free Text) Assessment: ESRD ON HD M W F ANEMIA OF CKD .. H/H STABLE S/P DECLOTTING OF HEROGRAFT .. WE USED ONE NEEDLE TODAY C/O CURRENT CARE
[2016-10-26] MEDS: HYDROmorphone 1 mg/ml ISec IVP PRN ×6 (00:07→21:57)
[2016-10-26] MEDS: (Novolog) Insulin Aspart, Recombinant 100 u/ml 10 ml vial SC SCH ×4 (08:03→22:02)
[2016-10-26] MEDS: Omega-3-Acid Ethyl Esters 1 GM Cap PO SCH ×2 (10:04→17:38)
[2016-10-26] MEDS: Multivitamin Vitamin B Complex (Nephro-Vite) Tab PO SCH (10:05)
[2016-10-26] MEDS: Ammonium Lactate 12% Lotion (225 g) TOP SCH ×2 (10:06→17:38)
[2016-10-26] MEDS: Tobramycin 0.3% OPHT SOLN OU SCH ×3 (10:12→17:40)
[2016-10-27] MEDS: HYDROmorphone 1 mg/ml ISec IVP PRN ×5 (02:50→21:37)
[2016-10-27] MEDS: (Novolog) Insulin Aspart, Recombinant 100 u/ml 10 ml vial SC SCH ×4 (08:14→22:00)
[2016-10-27] MEDS: Lidocaine/Prilocaine 2.5%-2.5% Cream (5 gm) EXT SCH (08:17)
[2016-10-27 09:43] LABS: BASO # 0.1 K/uL (0.0-0.2); BASO % 1.5 % (0.0-2.0); EOS # 0.4 K/uL (0.0-0.7); EOS % 6.4 % (0.0-4.0); HEMATOCRIT 34.5 % (35.0-51.0); LYMPH # 1.4 K/uL (1.0-4.3); MEAN CORPUSCULAR HEMOGLOBIN 26.1 pg (27.0-31.0); MEAN CORPUSCULAR HGB CONC 32.2 g/dL (33.0-37.0); MEAN PLATELET VOLUME 7.4 fL (7.2-11.7); MONO # 0.8 K/uL (0.0-0.8); MONO % 12.2 % (0.0-10.0); RED CELL DISTRIBUTION WIDTH 15.8 % (11.5-14.5); WHITE BLOOD COUNT 6.8 K/uL (4.8-10.8)
[2016-10-27 09:56] LABS: POTASSIUM 4.1 mmol/L (3.6-5.2)
[2016-10-27 09:59] LABS: PHOSPHOROUS 5.4 mg/dL (2.5-4.5)
[2016-10-27 10:00] LABS: CALCIUM 11.2 mg/dl (8.6-10.4); MAGNESIUM 1.9 mg/dL (1.6-2.3)
[2016-10-27] MEDS: Tobramycin 0.3% OPHT SOLN OU SCH ×3 (10:00→17:42)
[2016-10-27] MEDS: Ammonium Lactate 12% Lotion (225 g) TOP SCH ×2 (10:48→17:47)
[2016-10-27] MEDS: Omega-3-Acid Ethyl Esters 1 GM Cap PO SCH ×2 (13:26→17:37)
[2016-10-27] MEDS: Multivitamin Vitamin B Complex (Nephro-Vite) Tab PO SCH (13:29)
--- NOTE | 2016-10-27 15:51 | RAD ---
PROCEDURE: HISTORY: Clotted AV F ; for insertion of dialysis catheter COMPARISON: None TECHNIQUE: Total fluoroscopic time utilized during the procedure: 2004.8 seconds. Total dose 16.59 mGy cm squared FINDINGS: Submitted images from the current procedure: 1 Please refer to the physician's notes performing the procedure. IMPRESSION: Less than 1 hour fluoroscopic time utilized during performance of the procedure
--- NOTE | 2016-10-27 17:11 | CP.PCM.PN ---
Subjective - Date & Time of Evaluation Date of Evaluation: 10/27/16 Time of Evaluation: 16:00 - Subjective Subjective: TREE KILLER NOTES PT HAD HD TODAY VIA AV GRAFT TO THE LEFT ARM , WITHOUT ANY PROBLEMS D/W WITH DR. BALES REGARDING DISCHARGE , CLEARED FOR DISCHARGE IF NO ISSUES WITH HD TODAY PENDING CALL BACK FROM DR. CALLES - COVERING FOR DR. KATZ Objective - Vital Signs/Intake and Output Vital Signs (last 24 hours): Temp Pulse Resp BP Pulse Ox 97.8 F 99 H 20 111/70 96 10/27/16 15:00 10/27/16 15:00 10/27/16 15:00 10/27/16 15:00 10/27/16 15:00 Intake and Output: 10/27/16 10/27/16 06:59 18:59 Intake Total 170 240 Balance 170 240 - Medications Medications: Current Medications Apixaban (Eliquis) 2.5 mg PO BID [facility] Last Admin: 10/27/16 13:28 Dose: 2.5 mg Aspirin (Ecotrin) 81 mg PO DAILY [facility] Last Admin: 10/27/16 13:26 Dose: 81 mg Clopidogrel Bisulfate (Plavix) 75 mg PO DAILY [facility] Last Admin: 10/27/16 13:37 Dose: 75 mg Diphenoxylate HCl/Atropine (Lomotil 0.025-2.5 Mg Tablet) 2 tab PO BID PRN PRN Reason: Diarrhea Last Admin: 10/20/16 00:00 Dose: 2 tab Famotidine (Pepcid) 20 mg PO DAILY [facility] Last Admin: 10/27/16 13:37 Dose: 20 mg Home Med (Febuxostat [Uloric]) 40 mg PO DAILY [facility] Last Admin: 10/27/16 13:37 Dose: 40 mg Hydromorphone HCl (Dilaudid) 1 mg IVP Q4H PRN PRN Reason: Pain, severe (8-10) Last Admin: 10/27/16 13:30 Dose: 1 mg Insulin Aspart (Novolog) 0 unit SC ACHS [facility] PRN Reason: Protocol Last Admin: 10/27/16 12:32 Dose: Not Given Lactic Acid (Lac-Hydrin 12% Lotion (225 G)) 0 gm TOP BID [facility] Last Admin: 10/27/16 10:48 Dose: Not Given Lactulose (Enulose) 20 gm PO Q4 PRN PRN Reason: Constipation Last Admin: 10/27/16 13:40 Dose: 20 gm Lidocaine/Prilocaine (Emla) 0 gm EXT MWF [facility] Last Admin: 10/27/16 08:17 Dose: 1 applic Minoxidil (Minoxidil) 2.5 mg PO BID [facility] Last Admin: 10/27/16 10:00 Dose: Not Given Bmngr-1-Cqjr Ethyl Esters (Lovaza) 1 gm PO BID [facility] Last Admin: 10/27/16 13:26 Dose: 1 gm Paroxetine HCl (Paxil) 10 mg PO DAILY [facility] Last Admin: 10/27/16 13:30 Dose: 10 mg Rosuvastatin Calcium (Crestor) 10 mg PO HS [facility] Last Admin: 10/26/16 21:57 Dose: 10 mg Sevelamer Carbonate (Renvela) 2,400 mg PO TIDCC [facility] Last Admin: 10/27/16 13:25 Dose: 2,400 mg Tamsulosin HCl (Flomax) 0.4 mg PO DAILY [facility] Last Admin: 10/27/16 13:26 Dose: 0.4 mg Tobramycin Sulfate [facility] 1 drop OU TID [facility] Last Admin: 10/27/16 13:26 Dose: 1 drop Verapamil HCl (Calan Tab) 120 mg PO DAILY [facility] Last Admin: 10/27/16 13:27 Dose: Not Given Vitamin B Complex/Vit C/Folic Acid (Nephro-Clayton) 1 tab PO DAILY [facility] Last Admin: 10/27/16 13:29 Dose: 1 tab - Labs Labs: 10/27/16 09:37 10/27/16 09:37 PT 12.2 SECONDS (9.7-12.2) 10/18/16 11:06 INR 1.1 10/18/16 11:06 APTT 36 SECONDS (21-34) H 10/18/16 11:06
--- NOTE | 2016-10-27 23:17 | CP.PCM.PN ---
Subjective - Date & Time of Evaluation Date of Evaluation: 10/27/16 Time of Evaluation: 15:00 - Subjective Subjective: SEEN ON RENAL F/U SEEN ON HD .. 2 NEEDLES WEE USED IN THE AVG C/O LOCAL PAIN BUT LESS THAN BEFORE Objective - Vital Signs/Intake and Output Vital Signs (last 24 hours): Temp Pulse Resp BP Pulse Ox 97.8 F 99 H 20 111/70 96 10/27/16 15:00 10/27/16 15:00 10/27/16 15:00 10/27/16 15:00 10/27/16 15:00 Intake and Output: 10/27/16 10/28/16 18:59 06:59 Intake Total 240 240 Balance 240 240 - Medications Medications: Current Medications Apixaban (Eliquis) 2.5 mg PO BID [facility] Last Admin: 10/27/16 17:39 Dose: 2.5 mg Aspirin (Ecotrin) 81 mg PO DAILY [facility] Last Admin: 10/27/16 13:26 Dose: 81 mg Clopidogrel Bisulfate (Plavix) 75 mg PO DAILY [facility] Last Admin: 10/27/16 13:37 Dose: 75 mg Diphenoxylate HCl/Atropine (Lomotil 0.025-2.5 Mg Tablet) 2 tab PO BID PRN PRN Reason: Diarrhea Last Admin: 10/20/16 00:00 Dose: 2 tab Famotidine (Pepcid) 20 mg PO DAILY [facility] Last Admin: 10/27/16 13:37 Dose: 20 mg Home Med (Febuxostat [Uloric]) 40 mg PO DAILY [facility] Last Admin: 10/27/16 13:37 Dose: 40 mg Hydromorphone HCl (Dilaudid) 1 mg IVP Q4H PRN PRN Reason: Pain, severe (8-10) Last Admin: 10/27/16 21:37 Dose: 1 mg Insulin Aspart (Novolog) 0 unit SC ACHS [facility] PRN Reason: Protocol Last Admin: 10/27/16 22:00 Dose: 2 unit Lactic Acid (Lac-Hydrin 12% Lotion (225 G)) 0 gm TOP BID [facility] Last Admin: 10/27/16 17:47 Dose: 1 applic Lactulose (Enulose) 20 gm PO Q4 PRN PRN Reason: Constipation Last Admin: 10/27/16 13:40 Dose: 20 gm Lidocaine/Prilocaine (Emla) 0 gm EXT MWF [facility] Last Admin: 10/27/16 08:17 Dose: 1 applic Minoxidil (Minoxidil) 2.5 mg PO BID [facility] Last Admin: 10/27/16 17:39 Dose: 2.5 mg Xaktq-3-Fjxy Ethyl Esters (Lovaza) 1 gm PO BID [facility] Last Admin: 10/27/16 17:37 Dose: 1 gm Paroxetine HCl (Paxil) 10 mg PO DAILY [facility] Last Admin: 10/27/16 13:30 Dose: 10 mg Rosuvastatin Calcium (Crestor) 10 mg PO HS [facility] Last Admin: 10/27/16 21:37 Dose: 10 mg Sevelamer Carbonate (Renvela) 2,400 mg PO TIDCC [facility] Last Admin: 10/27/16 17:37 Dose: 2,400 mg Tamsulosin HCl (Flomax) 0.4 mg PO DAILY [facility] Last Admin: 10/27/16 13:26 Dose: 0.4 mg Tobramycin Sulfate (Tobrex 0.3% [facility]) 1 drop OU TID [facility] Last Admin: 10/27/16 17:42 Dose: 1 drop Verapamil HCl (Calan Tab) 120 mg PO DAILY [facility] Last Admin: 10/27/16 13:27 Dose: Not Given Vitamin B Complex/Vit C/Folic Acid (Nephro-Clayton) 1 tab PO DAILY [facility] Last Admin: 10/27/16 13:29 Dose: 1 tab - Labs Labs: 10/27/16 09:37 10/27/16 09:37 PT 12.2 SECONDS (9.7-12.2) 10/18/16 11:06 INR 1.1 10/18/16 11:06 APTT 36 SECONDS (21-34) H 10/18/16 11:06 Assessment and Plan - Assessment and Plan (Free Text) Assessment: ESRD ON HD M W F S/P AVG DE CLOTTING .. WAS USED SUCCESFULLY WITH 2 NEEDLES MULTIPLE CO MORBIDITIES P : C/O CURRENT CARE FOR D/C IN AM .. IF OK WITH DR KATZ
[2016-10-28 01:23] VITALS: O2SAT 95
[2016-10-28] MEDS: HYDROmorphone 1 mg/ml ISec IVP PRN ×3 (02:31→13:09)
[2016-10-28 07:36] VITALS: BP 133/78; PULSE 102; TEMP 98
[2016-10-28] MEDS: (Novolog) Insulin Aspart, Recombinant 100 u/ml 10 ml vial SC SCH ×2 (07:55→12:10)
[2016-10-28] MEDS: Omega-3-Acid Ethyl Esters 1 GM Cap PO SCH (09:03)
[2016-10-28] MEDS: Multivitamin Vitamin B Complex (Nephro-Vite) Tab PO SCH (09:04)
[2016-10-28] MEDS: Ammonium Lactate 12% Lotion (225 g) TOP SCH (09:08)
[2016-10-28] MEDS: Tobramycin 0.3% OPHT SOLN OU SCH ×2 (10:06→14:22)
--- NOTE | 2016-10-28 16:43 | CP.PCM.PN ---
Subjective - Date & Time of Evaluation Date of Evaluation: 10/28/16 Time of Evaluation: 11:00 - Subjective Subjective: Awake, alert, no sob or chest pains. Objective - Vital Signs/Intake and Output Vital Signs (last 24 hours): Temp Pulse Resp BP Pulse Ox 98 F 102 H 20 133/78 95 10/28/16 07:29 10/28/16 07:29 10/28/16 07:29 10/28/16 07:29 10/28/16 07:29 Intake and Output: 10/28/16 10/28/16 06:59 18:59 Intake Total 400 Balance 400 - Labs Labs: 10/27/16 09:37 10/27/16 09:37 PT 12.2 SECONDS (9.7-12.2) 10/18/16 11:06 INR 1.1 10/18/16 11:06 APTT 36 SECONDS (21-34) H 10/18/16 11:06 Assessment and Plan - Assessment and Plan (Free Text) Assessment: Patient is seen and examined. Alert and orientedx3, no sob or chest pains. Had HD done yesterday using left arm AVF, working well. D/W DR Grier, plan to discharge home today. Advised to keep right femoral dialysis catheter for now as per DR DR Grier. To follow up in the office in 1 week.
== END 2016-10-28 14:46 | disposition home or self-care (01) | DRG 252 ==
LOC: C.3T 09:39
PROVIDERS: ADMIT Internal Medicine; ATTEND Internal Medicine
PROC: 06HM33Z Insertion of Infusion Device into Right Femoral Vein, Percutaneous Approach (ICD-10-PCS; 2016-10-16)
PROC: B5191ZZ Fluoroscopy of Inferior Vena Cava using Low Osmolar Contrast (ICD-10-PCS; 2016-10-16)
PROC: 5A1D60Z (ICD-10-PCS; 2016-10-16)
PROC: 03CY3ZZ Extirpation of Matter from Upper Artery, Percutaneous Approach (ICD-10-PCS; 2016-10-19)
PROC: 3E05317 Introduction of Other Thrombolytic into Peripheral Artery, Percutaneous Approach (ICD-10-PCS; 2016-10-19)
PROC: 037Y3ZZ Dilation of Upper Artery, Percutaneous Approach (ICD-10-PCS; principal; 2016-10-19 10:00)
DX: T82.868A Thrombosis due to vascular prosthetic devices, implants and grafts, initial encounter (principal); N18.6 End stage renal disease; E87.5 Hyperkalemia; I12.0 Hypertensive chronic kidney disease with stage 5 chronic kidney disease or end stage renal disease; E11.22 Type 2 diabetes mellitus with diabetic chronic kidney disease; D63.1 Anemia in chronic kidney disease; I48.0 Paroxysmal atrial fibrillation; E11.40 Type 2 diabetes mellitus with diabetic neuropathy, unspecified; E78.00 Pure hypercholesterolemia, unspecified; G47.30 Sleep apnea, unspecified; K59.00 Constipation, unspecified; M81.0 Age-related osteoporosis without current pathological fracture; Y83.2 Surgical operation with anastomosis, bypass or graft as the cause of abnormal reaction of the patient, or of later complication, without mention of misadventure at the time of the procedure; Z23 Encounter for immunization; Z79.01 Long term (current) use of anticoagulants; Z87.440 Personal history of urinary (tract) infections; Z90.49 Acquired absence of other specified parts of digestive tract; Z99.2 Dependence on renal dialysis; Z79.4 Long term (current) use of insulin

== ENCOUNTER 2017-05-03 05:44 | Day surgery (SDC) | payer MEDICARE, MEDICAID ==
[2017-04-26 10:34] VITALS: PULSE 86
[2017-05-03 07:44] VITALS: BMI 25.0
[2017-05-03 08:08] LABS: INR 1.1; PROTHROMBIN TIME 12.8 SECONDS (9.7-12.2)
[2017-05-03] MEDS ORDERED: Iodixanol 320 MG/ML 200 ML BOTTLE IV ONE (08:33)
[2017-05-03] MEDS ORDERED: Midazolam 2 MG/2 ML VIAL ONE (08:33)
[2017-05-03] MEDS ORDERED: Lidocaine 2% Inj (20ml) ONE (08:38)
[2017-05-03] MEDS ORDERED: ceFAZolin 1 gm FROZEN Premix 1 GM/50 ML ML IVPB ONE (08:54)
--- NOTE | 2017-05-04 09:11 | OP ---
PROCEDURE DATE: 05/03/2017 PREOPERATIVE DIAGNOSES: 1. End stage renal disease. 2. Clotted arteriovenous graft. POSTOPERATIVE DIAGNOSES: 1. End stage renal disease. 2. Clotted arteriovenous graft. PROCEDURES: 1. Declotting of left brachial internal jugular HeRo graft using AngioJet declotting device. 2. Fistulogram. 3. Angioplasty of the arterial end using 5 x 40 mm balloon. SURGEON: Chris Grijalva MD. INDICATION: Mr. Lemon is a 52 years old male patient with multiple medical problems including end-stage renal disease, hypertension, diabetes, coronary artery disease. The patient is on hemodialysis via left brachial IJ HeRo graft. 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 He started to have clots and he underwent four times declotting and every time post declotting, the catheter worked for a couple of dialysis and clotted again. I did one of these declotting myself and after I cleared the graft and the catheter and angioplasty of the proximal end, I did not see any abnormal things at that time. The patient had dialysis for two weeks after and clotted again. He was declotted at an outpatient center twice and did work for one or two days and came back reporting today for declotting. The patient came for cardiac cath after informed consent obtained. He understands the risk and benefit and he agreed to proceed with the surgery. DESCRIPTION OF PROCEDURE: The patient came to the cardiac cath, he was laid in a supine position. He was prepped and draped in the usual sterile fashion, 1% lidocaine was used to infiltrate the site of the entry. The conscious sedation was given 2 mg of Versed and 25 mg of Fentanyl. Access of the graft done using micropuncture access needle, wire inserted through it and micropuncture sheath inserted over the wire. We upgraded to 6-Romanian sheath, which was directed proximally to the venous end. Wire was passed through the catheter down to the superior vena cava. Over the wire, AngioJet cath was used to find the clots and declotting the graft and the catheter; 2 mg of TPA was then used and we used it to help dissolve the clots until we venous end. Venogram showed complete clearance of the end and still there was no flow because the ostial site was closed. We exited the graft retrograde using micropuncture access needle, wire was inserted and we upgraded to 6-Romanian sheath through which the wire was inserted through the graft and continued manipulation until we were able to go down to the brachial artery. We passed the AngioJet device over the wire and we declotted the arterial end and as soon as we declotted, we felt the patient had a good thrill. High angiogram in this area found that there was some haziness around the arterial anastomosis and I obtained 5 x 40 mm balloon and angioplastied the area with good flow. Completion angiogram was good. There was some irregularity in the ostial side distal to this place at the site of the previous fistula or graft with narrowing of the brachial artery in this area. I could not see any deficit at the arterial anastomosis explaining why he keeps clotting recently. I spoke with the patient and I decided to be sure that he is taking anticoagulation and watch him and if it keeps happening again, we may need to go and reverse the arterial anastomosis. No complications. The patient tolerated the procedure well and will be discharged back to dialysis. Darius Grijalva MD
== END 2017-05-03 12:45 | disposition home or self-care (01) ==
LOC: C.CATHLAB 05:44
PROVIDERS: ATTEND Surgery
DX: T82.818A Embolism due to vascular prosthetic devices, implants and grafts, initial encounter (principal); Y83.2 Surgical operation with anastomosis, bypass or graft as the cause of abnormal reaction of the patient, or of later complication, without mention of misadventure at the time of the procedure; N18.6 End stage renal disease; Z99.2 Dependence on renal dialysis; I25.10 Atherosclerotic heart disease of native coronary artery without angina pectoris; I12.0 Hypertensive chronic kidney disease with stage 5 chronic kidney disease or end stage renal disease; E11.22 Type 2 diabetes mellitus with diabetic chronic kidney disease
CPT/HCPCS: 36415; 36905; 85610; 85730; J0690; J1644; J2250; J2405; J2997; J3010; Q9966